=== PATIENT | female | born 1980 | race Caucasian/White ===

== ENCOUNTER 2024-12-30 07:55 | Observation (INO) | payer BC, SELFPAY ==
[2024-12-30] VITALS (28 sets, daily range): BP systolic 108–128; BP diastolic 66–89; PULSE 54–88; TEMP 36.6–36.8; O2SAT 95–99; BMI 27.0; BMI 26.9
[2024-12-30 08:07] LABS: Glucometer 98 mg/dL (74-106)
--- NOTE | 2024-12-30 08:16 | ECG_ITS ---
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 Measurements Intervals [place] Rate: 66 P: 71 [place]: 170 QRS: -75 QRSD: 92 T: 54 QT: 374 QTc: 387 Interpretive Statements 1100 Sinus rhythm 2440 Incomplete right bundle branch block 2630 Left anterior fascicular block 3114 Cannot rule out anterior myocardial infarction, age undetermined 9150 abnormal ECG No previous ECG available for comparison Electronically Signed On 12-30-2024 17:27:35 EDT by LANNY PLAZA M.D.
--- NOTE | 2024-12-30 08:30 | ED_ITS ---
HPI HPI - General Adult General Chief complaint: Psychiatric Symptoms Stated complaint: CONFUSION, FACIAL NUMBNESS Time Seen by Provider: 12/30/24 08:05 Source: patient Mode of arrival: walk-in Limitations: no limitations History of Present Illness HPI narrative: 44-year-old female to the emergency department chief complaint of neurologic symptoms. Patient reports that since August she has noticed some increased left-sided headaches, mostly pressure behind her left eye. She reports that the headaches have increased in both frequency and severity. No aggravating or alleviating factors. She then began to develop some left-sided facial numbness mostly in her lower face/jaw. Over the last few weeks she has noticed some personality changes, reports she is more depressed and withdrawn. She reports the headaches worsened and localized behind the left eye. She saw her eye doctor on Monday and was told that everything looked normal with her eye after complete eye exam. Her primary care doctor did order an MRI for her however this has not yet been scheduled. She denies any motor weakness but reports it feels as though her hands are clumsy. She reports she has been having some intermittent confusion and difficulty completing tasks. She reports she has trouble finding words. Related Data Allergies Allergy/AdvReac Type Severity Reaction Status Date / Time bacitracin (From Neosporin AdvReac Severe Unknown Verified 12/30/24 08:01 ([id number])) neomycin (From Neosporin AdvReac Severe Unknown Verified 12/30/24 08:01 ([id number])) polymyxin B (From Neosporin AdvReac Severe Unknown Verified 12/30/24 08:01 ([id number])) Opioid HPI Opioid Management Most Recent Opioid Data: Last Pain Scale 5 12/30/24 08:41 12/30/24 Review of Systems ROS Status of ROS 10 or more systems reviewed and unremark able except as noted in history and below PFSH PFSH Social History Little interest or pleasure in doing things: nearly every day Feeling down, depressed, or hopeless: not at all Exam Narrative Exam Narrative: VITALS: I have reviewed the triage vital signs. GENERAL: Well developed, well appearing adult in no acute distress. NEURO: Alert and oriented. Moves all extremities. Face is symmetric and expressive. Motor strength is grossly intact in the upper and lower extremities bilaterally. No dysarthria, aphasia. No ataxia. No Rajan inattention or neglect. She has subjective sensation changes on the left side of the face and left hand. NIHSS 1. EYES: PERRL. No scleral icterus or conjunctival injection. No discharge. HENT: Normocephalic, atraumatic. Hearing is grossly intact. Nares grossly patent and without discharge. Mucous membranes moist. NECK: No JVD. Patient moves neck without restriction. CARDIO: Rhythm regular. Normal rate. No murmur, rub, or gallop. Pulses equal bilaterally in the upper and lower extremity. No lower extremity edema. PULM: Lungs clear to auscultation in all phillips. No wheezes, rales, or rhonchi. No conversational dyspnea. No splinting, stridor, or accessory muscle use. GI/: Abdomen is soft and non-tender. Normoactive bowel sounds. EXTREMITIES: Symmetric muscle bulk. No joint swelling. No clubbing, cyanosis, or deformity. SKIN: Warm and dry. Normal turgor. No rash or lesions appreciated. PSYCH: Tearful, anxious Constitutional Vital Signs, click to edit/add: Last Vital Signs Temp 98.2 F 12/30/24 08:01 Pulse 76 12/30/24 11:40 Resp 19 12/30/24 11:40 BP 110/74 12/30/24 11:30 Pulse Ox 97 12/30/24 11:40 O2 Del Method Room Air 12/30/24 08:40 Course Vital Signs Vital signs: Vital Signs Temperature 98.2 F 12/30/24 08:01 Pulse Rate 88 12/30/24 08:01 Respiratory Rate 18 12/30/24 08:01 Blood Pressure 128/89 12/30/24 08:01 Pulse Oximetry 97 12/30/24 08:01 Oxygen Delivery Method Room Air 12/30/24 08:01 Temperature 98.2 F 12/30/24 08:01 Pulse Rate 76 12/30/24 11:40 Respiratory Rate 19 12/30/24 11:40 Blood Pressure 110/74 12/30/24 11:30 Pulse Oximetry 97 12/30/24 11:40 Oxygen Delivery Method Room Air 12/30/24 08:40 Medical Decision Making MDM Narrative Medical decision making narrative: 44-year-old female to the emergency department with chief complaint of left- sided headache, left-sided facial numbness, speech issues that have been ongoing since August. Vital stable, the patient is afebrile. Her exam is unremarkable except for some subjective sensation change on the left side. She has had no neuroimaging to date. Will order CT scan of the head without contrast. Basic labs. Patient agrees with this plan. Lab work reviewed and noted. No significant abnormality. Contaminated urine, sent for culture. I do not believe she has a UTI based on this result. CT scan of the head is without acute findings. Given her progressive ongoing symptoms we will admit to the hospital for an MRI. Case discussed with Dr. Geller. She agrees with this plan. Medical Records Medical records reviewed: Yes I reviewed the patient's medical records Lab Data Lab results reviewed: Yes I reviewed the patient's lab results Labs: Lab Results 12/30/24 12/30/24 12/30/24 Range/Units 08:05 08:11 08:13 WBC 7.5 (4.0-11.0) 10^3/uL RBC 4.47 (4.20-5.40) 10^6/uL Hgb 14.0 (12.0-16.0) g/dL Hct 41.7 (36.0-48.0) % MCV 93.3 (81.0-99.0) fL MCH 31.3 (26.7-34.0) pg MCHC 33.6 (29.9-35.2) g/dL RDW 12.2 (11.0-15.0) % Plt Count 208 (150-450) 10^3/uL MPV 10.7 (9.5-13.5) fL Neut % (Auto) 53.5 (43.0-75.0) % Lymph % (Auto) 38.5 (20.5-60.0) % Gila % (Auto) 5.6 (1.7-12.0) % Eos % (Auto) 1.2 (0.9-7.0) % Baso % (Auto) 0.7 (0.2-2.0) % Neut # (Auto) 4.0 (1.4-6.5) 10^3/uL Lymph # (Auto) 2.9 (1.2-3.8) 10^3/uL Gila # (Auto) 0.4 (0.3-0.8) 10^3/uL Eos # (Auto) 0.1 (0.0-0.7) 10^3/uL Baso # (Auto) 0.1 (0.0-0.1) 10^3/uL Abs Immat Gran (auto) 0.04 H (0.00-0.03) 10^3/uL Imm/Tot Granulo (auto) 0.5 (0.0-0.5) % PT 10.6 (9.0-11.6) sec INR 1.00 Sodium 141 (136-145) mmol/L Potassium 4.5 (3.5-5.1) mmol/L Chloride 106 (98-107) mmol/L Carbon Dioxide 26.4 (21.0-32.0) mmol/L Anion Gap 13.1 BUN 21.0 H (7.0-18.0) mg/dL Creatinine 1.09 H (0.55-1.02) mg/dL Est GFR ( Amer) >60 (>=60 mL/min/1.73m^2) Est GFR (Non-Af Amer) 55 L (>=60 mL/min/1.73m^2) BUN/Creatinine Ratio 19.3 Glucose 98 (74-106) mg/dL Calcium 9.2 (8.5-10.1) mg/dL Troponin I High Sens 4.6 (4.0-51.3) pg/mL Urine Color Yellow (YELLOW) Urine Clarity Clear (CLEAR) Urine pH 5.5 (5.0-9.0) Ur Specific Stuart >=1.030 A (1.005-1.025) Urine Protein Negative (NEG/TRACE) mg/dL Urine Glucose (UA) Negative (NEGATIVE) mg/dL Urine Ketones Negative (NEGATIVE) mg/dL Urine Occult Blood Negative (NEGATIVE) Urine Nitrite Negative (NEGATIVE) Urine Bilirubin Negative (NEGATIVE) Urine Urobilinogen 0.2 (0.2-1.0) EU/dL Ur Leukocyte Esterase Negative (NEGATIVE) Urine RBC 0-2 (0-2) #/HPF Urine WBC None seen (NONE SEEN) #/HPF Ur Squamous Epith Cells Moderate A (NONE/RARE) #/LPF Urine Crystals None seen (None Seen) #/HPF Urine Bacteria Moderate A (NONE SEEN) #/HPF Urine Casts None seen (NONE SEEN) #/LPF Urine Mucus Large A (NONE SEEN) Ur Culture Indicated? Yes-[facility] [place] Urine HCG, Qual Negative (NEGATIVE) POC Glucose 98 (74-106) mg/dL Imaging Data CT scan - head: Attestation: I have reviewed the pertinent imaging results. Radiologist's impression: See PACS document ECG Data Attestation: ?I have reviewed the pertinent ECG results. (Normal sinus rhythm at a rate of 66. Normal QTc at 387. ) Discharge Plan Discharge Chief Complaint: Psychiatric Symptoms Clinical Impression: Paresthesia, Headache, Confusion Patient Disposition: Admitted as Observation Time of Disposition Decision: 12:05 Condition: Good Mode of Transportation: Private Vehicle Print Language: [place] Referrals: Darryl Campos NP [Primary Care Provider] - 1 week
[2024-12-30 08:45] LABS: Anion Gap 13.1; BUN Creatinine Ratio 19.3; Calcium 9.2 mg/dL (8.5-10.1); Carbon Dioxide 26.4 mmol/L (21.0-32.0); Chloride 106 mmol/L (98-107); Estimated GFR (African America >60 (>=60 mL/min/1.73m^2); Estimated GFR (Non-African Ame 55 (>=60 mL/min/1.73m^2); Glucose 98 mg/dL (74-106); Potassium 4.5 mmol/L (3.5-5.1); Sodium 141 mmol/L (136-145); Troponin I High Sensitivity 4.6 pg/mL (4.0-51.3)
[2024-12-30 08:48] LABS: Basophils Absolute Auto 0.1 10^3/uL (0.0-0.1); Basophils Percent Auto 0.7 % (0.2-2.0); Eosinophils Absolute Auto 0.1 10^3/uL (0.0-0.7); Eosinophils Percent Auto 1.2 % (0.9-7.0); Hematocrit 41.7 % (36.0-48.0); Immature Granulocytes Abs Auto 0.04 10^3/uL (0.00-0.03); Immature Granulocytes Pct Auto 0.5 % (0.0-0.5); Lymphocytes Absolute Auto 2.9 10^3/uL (1.2-3.8); Lymphocytes Percent Auto 38.5 % (20.5-60.0); Mean Corpuscular HGB Conc 33.6 g/dL (29.9-35.2); Mean Corpuscular Hemoglobin 31.3 pg (26.7-34.0); Mean Corpuscular Volume 93.3 fL (81.0-99.0); Mean Platelet Volume 10.7 fL (9.5-13.5); Monocytes Absolute Auto 0.4 10^3/uL (0.3-0.8); Monocytes Percent Auto 5.6 % (1.7-12.0); Neutrophils Percent Auto 53.5 % (43.0-75.0); Platelet Count 208 10^3/uL (150-450); Red Blood Count 4.47 10^6/uL (4.20-5.40); Red Cell Distribution Width 12.2 % (11.0-15.0); White Blood Count 7.5 10^3/uL (4.0-11.0)
[2024-12-30 08:51] LABS: Bilirubin Urine NEGATIVE (NEGATIVE); Blood Urine NEGATIVE (NEGATIVE); Clarity Urine CLEAR (CLEAR); Color Urine YELLOW (YELLOW); Glucose Urine UA NEGATIVE (NEGATIVE); Ketones Urine NEGATIVE (NEGATIVE); Leukocyte Esterase Urine NEGATIVE (NEGATIVE); Nitrite Urine NEGATIVE (NEGATIVE); Protein Urine NEGATIVE (NEG/TRACE); Specific Gravity Urine >=1.030 (1.005-1.025); Urobilinogen Urine 0.2 EU/dL (0.2-1.0); pH Urine 5.5 (5.0-9.0)
[2024-12-30 08:52] LABS: Prothrombin Time 10.6 sec (9.0-11.6)
[2024-12-30 08:58] LABS: Bacteria Urine MODERATE #/HPF (NONE SEEN); WBC Urine NONE SEEN #/HPF (NONE SEEN)
[2024-12-30 08:59] LABS: Cast Seen? NONE SEEN #/LPF (NONE SEEN); Crystals Seen? None Seen #/HPF (None Seen); Mucus Urine LARGE (NONE SEEN); Squamous Epithelial Cell Urine MODERATE #/LPF (NONE/RARE); Urine Culture Indicated YES-FRMC
[2024-12-30 09:00] LABS: RBC Urine 0-2 #/HPF (0-2)
[2024-12-30 09:01] LABS: HCG Qualitative Urine* NEGATIVE (NEGATIVE); Internal Control Within Normal Limits
--- OUTSIDE RECORDS SUMMARY | 2024-12-30 12:28 | XMS_ITS | CCD ---
Author Organization [facility] Inform ion Partnership [facility] Care Team Providers Care Service Liaison Representative Name Role Phone PRANAY SIMPSON Referring Unavailable SEJAL NAVARRO Primary Care Unavailable PRANAY SIMPSON Referring Unavailable SEJAL NAVARRO Primary Care Unavailable MAYRA GUTIERREZ Referring Unavailable SEJAL NAVARRO Primary Care Unavailable PRANAY SIMPSON Consulting Unavailable MAKAYLA BECERRA Admitting Unavailable MAGI WOOD Attending Unavailable MARI RAMIREZ Consulting Unavailable ROMAN PALOMINO Consulting Unavailable Sejal Navarro Primary Care Provider [phone] [place] [employer] DEANSejal Primary Care Provider [place] [employer] DEAN, Ryley [place]isle Primary Care Prov ider TAHIR VALDEZ Referring Unavailable CLINRYLEY URIARTE Primary Care Unavailable TAHIR VALDEZ Referring Unavailable CLINRYLEY URIARTE Primary Care Unavailable ARACELI HODGE Attending Unavailable SELF, SELF Referring Unavailable RYLEY CAMPOS Primary Care Unavailable RYLEY CAMPOS Primary Care Unavailable ARACELI HODGE Referring Unavailable ARACELI HODGE Attending Unavailable Allergies Allergy Classification Reported Allergen(s) Allergy Type Date of Onset Reaction(s) Facility (9 sources) Neomycin-Polymyx in-Gramicidin Propensity to adverse reactions to drug 04-16-2019 [facility] [place] Medications Current Medications Medication Drug Class(es) Dates Sig (Normalized) Sig (Original) acetaminophen 325 mg oral tablet (9 sources) take 2 tablets by mouth every six hours as needed for pain acetaminophen (TYLENOL) 325 MG tablet Take 2 tablets by mouth every 6 hours as needed for Pain 0 Active Ascorbic Acid (4 sources) Vitamin C Ascorbic Acid (ADRIAN-C PO) Take by mouth 0 Active ascorbic acid 60 mg / beta carotene 5000 unt / copper sulfate 40 mg / dl-alpha tocopheryl acetate 30 unt / sodium selenite 0.04 mg / zinc oxide 40 mg oral tablet (2 sources) Vitamin C take 1 tablet by mouth once daily Multiple Vitamins-Minerals (THERAPEUTIC MULTIVITAMIN-MINERA LS) tablet Take 1 tablet by mouth daily 0 Active dicyclomine hydrochloride 10 mg oral capsule (2 sources) Anticholinergic Start: 09-03-2021 End: 09-13-2021 take 1 capsule by mouth three times daily dicyclomine (BENTYL) 10 MG capsule Take 1 capsule by mouth 3 times daily for 10 days 30 capsule 0 09/03/2021 09/13/2021 Active ferrous sulfate 325 mg oral tablet (3 sources) Start: 04-18-2019 take 1 tablet by mouth once daily at breakfast ferrous sulfate 325 (65 Fe) MG tablet Take 1 tablet by mouth daily (with breakfast) 90 tablet 1 04/18/2019 Active ibuprofen 800 mg oral tablet (1 source) Nonsteroidal Anti-inflammatory Drug take 1 tablet by mouth every six hours as needed for pain ibuprofen (ADVIL;MOTRIN) 800 MG tablet Take 800 mg by mouth every 6 hours as needed for Pain 0 Active magnesium oxide 400 mg oral tablet (9 sources) take 1 tablet by mouth once daily magnesium oxide (MAG-OX) 400 MG tablet Take 1 tablet by mouth nightly 0 Active Multiple Vitamins-Minerals (THERAPEUTIC MULTIVITAMIN-MINERA LS) tablet (7 sources) take 1 tablet by mouth once daily Multiple Vitamins-Minerals (THERAPEUTIC MULTIVITAMIN-MINERA LS) tablet Take 1 tablet by mouth daily 0 Active ondansetron 4 mg disintegrating oral tablet (5 sources) Serotonin-3 Receptor Antagonist Start: 06-17-2022 take 1 tablet by mouth every eight hours as needed for nausea ondansetron (ZOFRAN ODT) 4 MG disintegrating tablet Take 1 tablet by mouth every 8 hours as needed for Nausea or Vomiting 30 tablet 0 06/17/2022 Active Start: 09-03-2021 take 1 tablet by haris th every twelve hours as needed for nausea ondansetron (ZOFRAN-ODT) 4 MG disintegrating tablet Indications: Bloated abdomen , Nausea Take 1 tablet by mouth every 12 hours as needed for Nausea or Vomiting 8 tablet 0 09/03/2021 Active Start: 04-23-2019 take 1 tablet by haris th every eight hours as needed for nausea ondansetron (ZOFRAN) 4 MG tablet Indications: Nausea and vomiting, intractability of vomiting not specified, unspecified vomiting type Take 1 tablet by mouth every 8 hours as needed for Nausea or Vomiting 12 tablet 0 04/23/2019 Active pantoprazole 40 mg delayed release oral tablet (1 source) Proton Pump Inhibitor Start: 04-23-2019 take 1 tablet by mouth once daily pantoprazole (PROTONIX) 40 MG tablet Indications: Nausea and vomiting, intractability of vomiting not specified, unspecified vomiting type Take 1 tablet by mouth daily 30 tablet 2 04/23/2019 Active 24 hr divalproex sodium 500 mg extended release oral tablet (4 sources) Mood Stabilizer, Anti-epileptic Agent Start: 02-21-2023 take 1 tablet by mouth once daily divalproex (DEPAKOTE ER) 500 MG extended release tablet Take 1 tablet by mouth daily 90 tablet 1 02/21/2023 Active Start: 08-24-2022 take 1 tablet by haris th once daily divalproex (DEPAKOTE ER) 250 MG extended release tablet Take 1 tablet by mouth daily 90 tablet 1 08/24/2022 Active vitamin b12 0.1 mg oral tablet (9 sources) Vitamin B12 take 1 tablet by mouth once daily vitamin B-12 (CYANOCOBALAMIN) 100 MCG tablet Take 1 tablet by mouth nightly 0 Active Completed/Discontinued Medications Medication Drug Class(es) Dates Sig (Normalized) Sig (Original) ciprofloxacin 500 mg oral tablet (2 sources) Quinolone Antimicrobial Start: 03-17-2020 End: 03-27-2020 take 1 tablet by mouth twice daily ciprofloxacin (CIPRO) 500 MG tablet Take 1 tablet by mouth 2 times daily for 10 days Diverticulitis 20 tablet 0 03/17/2020 03/18/2020 Discontinued iohexol (OMNIPAQUE 240) injection 20 mL (1 source) Start: 03-17-2020 End: 03-17-2020 iohexol (OMNIPAQUE 240) injection 20 mL iopamidol (ISOVUE-370) 76 % injection 75 mL (1 source) Start: 03-17-2020 End: 03-17-2020 iopamidol (ISOVUE-370) 76 % injection 75 mL metroNIDAZOLE 500 mg oral tablet (2 sources) Nitroimidazole Antimicrobial Start: 03-17-2020 End: 03-27-2020 take 1 tablet by mouth three times daily metroNIDAZOLE (FLAGYL) 500 MG tablet Take 1 tablet by mouth 3 times daily for 10 days Diverticulitis 30 tablet 0 03/17/2020 03/18/2020 Discontinued Problems Active Problems Problem Classification Problem Date Documented Da te Episodic/Chronic Abdominal pain (3 sources) Abdominal tenderness of left lower quadrant; Translations: [Upper abdominal pain] Episodic Anxiety disorders (18 sources) Mixed anxiety and depressive disorder; Translations: [Posttraumatic stress disorder] Onset: 10-19-2017 10-19-2017 Chronic Cardiac dysrhythmias (2 sources) Palpitations; Translations: [Palpitations] Episodic Gastrointestinal hemorrhage (2 sources) Rectal hemorrhage; Translations: [Rectal bleeding] Episodic Mood disorders (2 sources) Bipolar I disorder; Translations: [Bipolar disorder, unspecified] Onset: 06-24-2022 06-24-2022 Chronic Nausea and vomiting (3 sources) Nausea; Translations: [Nausea] Episodic Other gastrointestinal disorders (1 source) Irritable bowel syndrome characterized by constipation; Translations: [Irritable bowel syndrome with constipation] Chronic Other gastrointestinal disorders (1 source) Abdominal bloating; Translations: [Abdominal distension (gaseous)] Episodic Other non-traumatic joint disorders (1 source) Acute ankle pain; Translations: [Pain in left ankle and joints of left foot] Episodic Other non-traumatic joint disorders (3 sources) Pain in left ankle and joints of left foot; Translations: [Pain in left ankle and joints of left foot] Onset: 02-24-2023 Episodic Residual codes; unclassified (2 sources) Pain; Translations: [Pain] Onset: 02-28-2023 Episodic Unclassified (2 sources) Injury; Translations: [Injury] Onset: 02-28-2023 Past or Other Problems Problem Classification Problem Date Documented Da te Episodic/Chronic Coagulation and hemorrhagic disorders (4 sources) Platelet count below reference range; Translations: [Thrombocytopenia, unspecified] Resolved: 08-11-2020 08-11-2020 Chronic Diseases of white blood cells (10 sources) Leukopenia; Translations: [Decreased white blood cell count, unspecified] Onset: 04-15-2019 Resolved: 08-11-2020 04-18-2019 Chronic Other screening for suspected conditions (not mental disorders or infectious disease) (9 sources) Platelet count below reference range; Translations: [Cancer cervix screening status] Onset: 07-16-2012 Resolved: 08-11-2020 04-18-2019 Episodic Residual codes; unclassified (9 sources) Generalized aches and pains; Translations: [Pain, unspecified] Resolved: 04-18-2019 04-18-2019 Episodic Residual codes; unclassified (9 sources) Influenza-like symptoms; Translations: [Other general symptoms and signs] Resolved: 04-18-2019 04-18-2019 Episodic Unclassified (5 sources) Cancer cervix screening status; Translations: [Screening for cervical cancer] Onset: 07-16-2012 Resolved: 08-13-2018 08-13-2018 Viral infection (9 sources) Viremia; Translations: [Viral infection, unspecified] Resolved: 08-11-2020 04-18-2019 Episodic Results Test Name Value Interpretation Reference Range Facility XR ANKLE LEFT (MIN 3 VIEWS)o n 02-24-2023 XR ANKLE LEFT (MIN 3 VIEWS) EXAM: XR ANKLE LEFT (MIN 3 VIEWS) HISTORY: Reason for exam:->trauma to the ankle, concern for Fx COMPARISON: None. IMPRESSION: FINDINGS/IMPRESSION: 1. Soft tissue swelling over lateral malleolus. 2. No fracture or dislocation. Interpreted by: Mitch Hutchinson Jr., MD Signed by: Mitch Hutchinson Jr., MD 02/24/23 Final result Normal [facility] FINDINGS/IMPRESSION: 1. Soft tissue swelling over lateral malleolus. 2. No fracture or dislocation. [facility] EXAM: XR ANKLE LEFT (MIN 3 VIEWS) HISTORY: Reason for exam:->trauma to the ankle, concern for Fx COMPARISON: None. [facility] Mitch Hutchinson Jr., MD - 02/24/2023 EXAM: XR ANKLE LEFT (MIN 3 VIEWS) HISTORY: Reason for exam:->trauma to the ankle, concern for Fx COMPARISON: None. IMPRESSION: FINDINGS/IMPRESSION: 1. Soft tissue swelling over lateral malleolus. 2. No fracture or dislocation. [employer] Phone: Radiology Study observation (narrative) [facility] Phone: XR ANKLE LEFT (MIN 3 VIEWS)O rdered By: Mitch Hutchinson on 02-24-2023 [email or web address] Phone: Basic Metabolic Panelon 11-1 9-2021 Anion gap [Moles/Vol] 10 mmol/L 9 - 17 mmol/L [facility] Calcium [Mass/Vol] 10.1 mg/dL 8.6 - 10. 4 mg/dL [facility] Chloride [Moles/Vol] 99 mmol/L 98 - 10 7 mmol/L [facility] CO2 [Moles/Vol] 29 mmol/L 20 - 31 mmol/L [facility] Creatinine [Mass/Vol] 0.9 mg/dL 0.50 - 0.90 mg/dL [facility] GFR >60 >60 mL/min [facility] GFR Non- >60 >60 mL/min [facility] GFR/1.73 sq M.predicted MDRD (S/P/Bld) [Vol rate/Area] [facility] Comment on above: Average GFR for 40-4 9 years old: 99 mL/min/1.73sq m Chronic Kidney Disease: <60 mL/min/1.73sq m Kidney failure: <15 mL/min/1.73sq m eGFR calculated using average adult body mass. Additional eGFR calculator available at: http://www.Freepath/multiple_crcl_2012.htm GFR/1.73 sq M.predicted MDRD (S/P/Bld) [Vol rate/Area] NOT REPORTED [facility] Glucose [Mass/Vol] 89 mg/dL 70 - 99 mg/dL [facility] Potassium [Moles/Vol] 4.0 mmol/L 3.7 - 5.3 mmol/L [facility] Sodium [Moles/Vol] 138 mmol/L 135 - 144 mmol/L [facility] Urea nitrogen (BldV) [Mass/Vol] 12 mg/dL 6 - 20 mg/dL [facility] Urea nitrogen/Creatinine (Bld) [Mass ratio] 13 [facility] CBC Auto Differentialon 08-16 Absolute Eos # 0.10 [facility] Immature Granulocyte NOT REPORTED [facility] Absolute Lymph # 2.70 [facility] Absolute [place] [facility] Basophils (Bld) [#/Vol] 0.00 10*3/uL [facility] Basophils/100 WBC (Bld) 0 % 0 - 2 % [facility] Differential Type YES [facility] Eosinophils/100 WBC (Bld) 1 % 0 - 5 % [facility] Hematocrit (Bld) [Volume fraction] 40.8 % 36 - 46 % [facility] Hemoglobin.gastrointes tinal spec 1 Ql (Stl) 13.6 g/dL 12.0 - 16.0 g/dL [facility] Immature Granulocytes NOT REPORTED 0 % [facility] Lymphocytes/100 WBC (Bld) 37 % 15 - 40 % [facility] MCH (RBC) [Entitic mass] 30.7 pg 26 - 34 pg [facility] MCHC (RBC) [Mass/Vol] 33.3 g/dL 31 - 37 g/dL [facility] MCV (RBC) [Entitic vol] 92.2 fL 80 - 100 fL [facility] Monocytes/100 WBC (Bld) 6 % 4 - 8 % [facility] NRBC Automated NOT REPORTED per 100 WBC [facility] Platelet distribution width (Bld) [Ratio] 13.7 % 12.1 - 15.2 % [facility] Platelet Estimate NOT REPORTED [facility] Platelet mean volume (Bld) [Entitic vol] NOT REPORTED 6.0 - 12.0 fL [facility] Platelets (Bld) [#/Vol] 208 10*3/uL [facility] RBC (Bld) [#/Vol] 4.42 10*6/uL 4.0 - 5.2 m/uL [facility] RBC (Bld) [#/Vol] NOT REPORTED [facility] Segmented neutrophils/100 WBC (Bld) 56 % 47 - 75 % [facility] Segs Absolute 4.10 [facility] W[facility] ([facility]ld[facility] [#/Vol] 7.4 10*3/uL [facility] WBC (Bld) [#/Vol] NOT REPORTED [facility] [place] [facility] [place] Hepatic Function Panelon Albumin [Mass/Vol] 4.7 g/dL 3.5 - 5.2 g/dL [facility] Albumin/Globulin Ratio NOT REPORTED [facility] ALP (Bld) [Catalytic activity/Vol] 65 U/L 35 - 104 U/L [facility] ALT [Catalytic activity/Vol] 22 U/L 5 - 33 U/L [facility] AST [Catalytic activity/Vol] 22 U/L <32 [facility] Bilirubin [Mass/Vol] 0.49 mg/dL 0.30 - 1.20 mg/dL [facility] Bilirubin, Indirect Can not be calculated 0.00 - 1.00 mg/dL [facility] Bilirubin.indirect [Mass/Vol] mg/dL <0.31 mg/dL [facility] Free PSA/Total PSA [Mass fraction] 7.0 g/dL 6.4 - 8.3 g/dL [facility] Globulin NOT REPORTED 1.5 - 3.8 g/dL [facility] Lipaseon 09-03-2021 Lipase [Catalytic activity/Vol] 21 U/L 13 - 60 U/L [facility] Microscopic Urinalysison - [facility] Amorphous, UA NOT REPORTED [facility] Bacteria, UA 1+ Abnormal None [facility] Casts UA NOT REPORTED /LPF [facility] Crystals, UA NOT REPORTED None /HPF [facility] th Epithelial Cells UA 2 TO 5 /HPF [facility] Interpretation and review of laboratory results Abnormal [facility] Mucus, UA NOT REPORTED None [facility] Other Observations UA NOT REPORTED NOT REQ. [facility] RBC, UA 0 TO 2 [facility] Renal Epithelial, UA NOT REPORTED 0 /HPF [facility] Trichomonas, UA NOT REPORTED None [facility] WBC, UA 0 TO 2 0 /HPF [facility] Yeast, UA NOT REPORTED None [facility] [place] [facility] [place] No Panel Informationon 09-03 Normal KUB. [facility] EXAM: XR ABDOMEN (2 VIEWS) HISTORY: Reason for exam:->epigastric pain, bloating, uncomfortable to sit down, rule out free air. IBS-c COMPARISON: CT abdomen pelvis 03/17/2020. TECHNIQUE: KUB, 2 images. FINDINGS: Lung bases clear. Gas pattern normal. No excess stool. No abnormal soft tissue mass or calcification. [facility] Mitch Hutchinson Jr., MD - 09/03/2021 EXAM: XR ABDOMEN (2 VIEWS) HISTORY: Reason for exam:->epigastric pain, bloating, uncomfortable to sit down, rule out free air. IBS-c COMPARISON: CT abdomen pelvis 03/17/2020. TECHNIQUE: KUB, 2 images. FINDINGS: Lung bases clear. Gas pattern normal. No excess stool. No abnormal soft tissue mass or calcification. IMPRESSION: Normal KUB. [facility] Work Phone: [facility] Radiology Study observation (narrative) [facility] Work Phone: No Panel InformationOrdered By: Mitch Hutchinson on 09-03-2021 [facility] Work Phone: Urinalysis Reflex to Culture on 09-03-2021 Bilirubin Urine Negative NEGATIVE [facility] Color, UA Yellow Yellow [facility] Glucose, Ur Negative NEGATIVE [facility] Interpretation and review of laboratory results Abnormal [facility] Ketones Ql (U) Negative NEGATIVE [facility] Leukocyte esterase Test strip Ql (U) Negative NEGATIVE [facility] Nitrite, Urine Negative NEGATIVE [facility] pH, UA 6.5 [facility] Protein, UA Negative NEGATIVE [facility] Specific [place], UA 1.015 [facility] Turbidity UA Clear Clear [facility] Urinalysis Comments [facility] Urine Hgb TRACE Abnormal NEGATIVE [facility] Urobilinogen, Urine Normal Normal [facility] [place] [facility] [place] CBC Auto Differentialon 10-2 Basophils (Bld) [#/Vol] 0.10 10*3/uL [place] Basophils/100 WBC (Bld) 1 % 0 - 2 % [place] Differential Type YES [place] Eosinophils (Bld) [#/Vol] 0.00 10*3/uL [place] Eosinophils/100 WBC (Bld) 1 % 0 - 5 % [place] Erythrocyte distribution width (RBC) [Ratio] 14.8 % 12.1 - 15.2 % [place] Hematocrit (Bld) [Volume fraction] 38.9 % 36 - 46 % [place] Hemoglobin (Bld) [Mass/Vol] 12.9 g/dL 12 - 16 g/dL [place] Lymphocytes (Bld) [#/Vol] 3.10 10*3/uL [place] Lymphocytes/100 WBC (Bld) 34 % 15 - 40 % [place] MCH (RBC) [Entitic mass] 29.5 pg 26 - 34 pg [place] MCHC (RBC) [Mass/Vol] 33.2 g/dL 31 - 37 g/dL [place] MCV (RBC) [Entitic vol] 88.9 fL 80 - 100 fL [place] Monocytes (Bld) [#/Vol] 0.50 10*3/uL [place] Monocytes/100 WBC (Bld) 6 % 4 - 8 % [place] Platelet mean volume (Bld) [Entitic vol] NOT REPORTED 6 - 12 fL [place] Platelets (Bld) [#/Vol] NOT REPORTED [place] Platelets (Bld) [#/Vol] 205 10*3/uL [place] RBC (Bld) [#/Vol] 4.38 10*6/uL 4 - 5.2 m/uL [place] RBC morphology finding Nom (Bld) NOT REPORTED [place] Segmented neutrophils/100 WBC (Bld) 58 % 47 - 75 % [place] Segs Absolute 5.20 [place] WBC (Bld) [#/Vol] 8.9 10*3/uL [place] WBC (Bld) [#/Vol] NOT REPORTED per 100 WBC [place] WBC Morphology NOT REPORTED [place] Comprehensive Metabolic Pane ceferino 08-11-2020 Albumin [Mass/Vol] 4.5 g/dL 3.5 - 5.2 g/dL [place] Albumin/Globulin [Mass ratio] NOT REPORTED [place] ALP [Catalytic activity/Vol] 63 U/L 35 - 104 U/L [place] ALT [Catalytic activity/Vol] 15 U/L 5 - 33 U/L [place] Anion gap [Moles/Vol] 10 mmol/L 9 - 17 mmol/L [place] AST [Catalytic activity/Vol] 20 U/L <32 [place] Bilirubin Ql (U) 0.38 mg/dL 0.3 - 1.2 mg/dL [place] Bun/Cre Ratio 18 [place] Calcium [Mass/Vol] 9.5 mg/dL 8.6 - 10. 4 mg/dL [place] Chloride [Moles/Vol] 103 mmol/L 98 - 10 7 mmol/L [place] CO2 [Moles/Vol] 26 mmol/L 20 - 31 mmol/L [place] Creatinine [Mass/Vol] 1.05 mg/dL High 0.5 - 0.9 mg/dL [place] GFR >60 >60 mL/min [place] GFR Non- 58 mL/min Low >60 [place] GFR/1.73 sq M predicted among non-blacks MDRD (S/P/Bld) [Vol rate/Area] NOT REPORTED [place] GFR/1.73 sq M predicted among non-blacks MDRD (S/P/Bld) [Vol rate/Area] [place] Comment on above: Average GFR for 40-4 9 years old: 99 mL/min/1.73sq m Chronic Kidney Disease: <60 mL/min/1.73sq m Kidney failure: <15 mL/min/1.73sq m eGFR calculated using average adult body mass. Additional eGFR calculator available at: http://www.Freepath/multiple_crcl_2011.htm Glucose [Mass/Vol] 105 mg/dL High 70 - 99 mg/dL [place] Interpretation and review of laboratory results Abnormal [place] Potassium [Moles/Vol] 4.1 mmol/L 3.7 - 5.3 mmol/L [place] Protein [Mass/Vol] 6.9 g/dL 6.4 - 8.3 g/dL [place] Sodium [Moles/Vol] 139 mmol/L 135 - 144 mmol/L [place] Urea nitrogen [Mass/Vol] 19 mg/dL 6 - 20 mg/dL [place] Magnesiumon 08-11-2020 Magnesium [Mass/Vol] 2.5 mg/dL 1.6 - 2 .6 mg/dL [place] Otheron 08-11-2020 Immature granulocytes (Bld) [#/Vol] NOT REPORTED [place] TSH with Reflexon 08-11-2020 TSH Qn 0.98 m[IU]/L [place] CBC Auto Differentialon Basophils (Bld) [#/Vol] 0.00 10*3/uL [place] Basophils/100 WBC (Bld) 1 % 0 - 2 % [place] Differential Type YES [facility] [place] Eosinophils (Bld) [#/Vol] 0.10 10*3/uL [place] Eosinophils/100 WBC (Bld) 1 % 0 - 5 % [place] Erythrocyte distribution width (RBC) [Ratio] 13.8 % 12.1 - 15.2 % [place] Hematocrit (Bld) [Volume fraction] 42.0 % 36 - 46 % [place] Hemoglobin (Bld) [Mass/Vol] 13.9 g/dL 12 - 16 g/dL [place] Interpretation and review of laboratory results Abnormal [place] Lymphocytes (Bld) [#/Vol] 2.90 10*3/uL [place] Lymphocytes/100 WBC (Bld) 41 % High 15 - 40 % [place] MCH (RBC) [Entitic mass] 30.5 pg 26 - 34 pg [place] MCHC (RBC) [Mass/Vol] 33.0 g/dL 31 - 37 g/dL [place] MCV (RBC) [Entitic vol] 92.2 fL 80 - 100 fL [place] Monocytes (Bld) [#/Vol] 0.70 10*3/uL [place] Monocytes/100 WBC (Bld) 10 % High 4 - 8 % [place] Platelet mean volume (Bld) [Entitic vol] NOT REPORTED 6 - 12 fL [place] Platelets (Bld) [#/Vol] NOT REPORTED [place] Platelets (Bld) [#/Vol] 203 10*3/uL [place] RBC (Bld) [#/Vol] 4.56 10*6/uL 4 - 5.2 m/uL [place] RBC morphology finding Nom (Bld) NOT REPORTED [place] Segmented neutrophils/100 WBC (Bld) 47 % 47 - 75 % [place] Segs Absolute 3.30 [facility] [place] WBC (Bld) [#/Vol] NOT REPORTED per 100 WBC [place] WBC (Bld) [#/Vol] 6.9 10*3/uL [place] WBC Morphology NOT REPORTED [facility] [place] CT ABDOMEN PELVIS W IV CONTR AST Additional Contrast? Oralon 03-17-2020 1. No obvious explanation for patient's symptoms. 2. No obvious inflammatory process involving the small or large bowel loops. 3. Normal appendix. 4. Simple cyst in the left kidney. 5. Previous hyste[place]. [place] CLINICAL HISTORY: Left lower quadrant abdominal pain, nausea. Rectal bleeding. EXAMINATION: Enhanced CT scan of the abdomen and pelvis: 03/17/2020. COMPARISON: Enhanced CT scan of the abdomen and pelvis: 11/17/2009. TECHNIQUE: 3.75 mm axial images from lung bases through ischial tuberosities following administration of intravenous as well as oral contrast were obtained. Sagittal, coronal reconstructions were performed. 75 mL of Isovue 370 was utilized as intravenous contrast. Dose reduction techniques were achieved by using automated exposure control and/or adjustment of mA and/or kV according to patient size and/or use of iterative reconstruction technique. FINDINGS: There are no focal abnormalities of the visualized lung bases. The visualized cardiac, posterior mediastinal structures seem normal. CT ABDOMEN: Liver, spleen, gallbladder, pancreas, adrenal glands, kidneys appear normal except for a low-density lesion in the mid to lower pole anterior cortex of the left kidney, measuring 1.5 cm in size, average Hounsfield units of approximately 18. The abdominal aorta has normal caliber. There are no abnormally dilated loops of small or large bowel. There is no inflammatory process involving the small or large bowel loops. There is a normal-appearing appendix. CT PELVIS: The bladder is normal. The uterus, ovaries are not identified. There is no definite pelvic or retroperitoneal adenopathy. There are no focal fluid collections. The visualized osseous structures demonstrate no gross abnormalities. [place], [place] [facility], [facility] Incoming Radiant Results From [facility] - 03/17/2020 7:59 PM EDT CLINICAL HISTORY: Left lower quadrant abdominal pain, nausea. Rectal bleeding. EXAMINATION: Enhanced CT scan of the abdomen and pelvis: 03/17/2020. COMPARISON: Enhanced CT scan of the abdomen and pelvis: 11/17/2009. TECHNIQUE: 3.75 mm axial images from lung bases through ischial tuberosities following administration of intravenous as well as oral contrast were obtained. Sagittal, coronal reconstructions were performed. 75 mL of Isovue 370 was utilized as intravenous contrast. Dose reduction techniques were achieved by using automated exposure control and/or adjustment of mA and/or kV according to patient size and/or use of iterative reconstruction technique. FINDINGS: There are no focal abnormalities of the visualized lung bases. The visualized cardiac, posterior mediastinal structures seem normal. CT ABDOMEN: Liver, spleen, gallbladder, pancreas, adrenal glands, kidneys appear normal except for a low-density lesion in the mid to lower pole anterior cortex of the left kidney, measuring 1.5 cm in size, average Hounsfield units of approximately 18. The abdominal aorta has normal caliber. There are no abnormally dilated loops of small or large bowel. There is no inflammatory process involving the small or large bowel loops. There is a normal-appearing appendix. CT PELVIS: The bladder is normal. The uterus, ovaries are not identified. There is no definite pelvic or retroperitoneal adenopathy. There are no focal fluid collections. The visualized osseous structures demonstrate no gross abnormalities. IMPRESSION: 1. No obvious explanation for patient's symptoms. 2. No obvious inflammatory process involving the small or large bowel loops. 3. Normal appendix. 4. Simple cyst in the left kidney. 5. Previous hysterectomy. [place], [place] Comprehensive Metabolic Pane ceferino 03-17-2020 Albumin [Mass/Vol] 4.9 g/dL 3.5 - 5.2 g/dL [place] Albumin/Globulin [Mass ratio] NOT REPORTED [place] ALP [Catalytic activity/Vol] 71 U/L 35 - 104 U/L [place] ALT [Catalytic activity/Vol] 12 U/L 5 - 33 U/L [place] Anion gap [Moles/Vol] 11 mmol/L 9 - 17 mmol/L [place] AST [Catalytic activity/Vol] 19 U/L <32 [place] Bilirubin Ql (U) 0.15 mg/dL Low 0.3 - 1.2 mg/dL [place] Bun/Cre Ratio 19 [place] Calcium [Mass/Vol] 10.3 mg/dL 8.6 - 10. 4 mg/dL [place] Chloride [Moles/Vol] 101 mmol/L 98 - 10 7 mmol/L [place] CO2 [Moles/Vol] 26 mmol/L 20 - 31 mmol/L [place] Creatinine [Mass/Vol] 0.88 mg/dL 0.5 - 0.9 mg/dL [place] GFR >60 >60 mL/min [place] GFR Non- >60 >60 mL/min [place] GFR/1.73 sq M predicted among non-blacks MDRD (S/P/Bld) [Vol rate/Area] NOT REPORTED [place] GFR/1.73 sq M predicted among non-blacks MDRD (S/P/Bld) [Vol rate/Area] [place] Comment on above: Average GFR for 30-3 9 years old: 107 mL/min/1.73sq m Chronic Kidney Disease: <60 mL/min/1.73sq m Kidney failure: <15 mL/min/1.73sq m eGFR calculated using average adult body mass. Additional eGFR calculator available at: http://www.menuvox.[employer]/multiple_crcl_2011.htm Glucose [Mass/Vol] 104 mg/dL High 70 - 99 mg/dL [place] Interpretation and review of laboratory results Abnormal [place] Potassium [Moles/Vol] 4.2 mmol/L 3.7 - 5.3 mmol/L [place] Protein [Mass/Vol] 7.8 g/dL 6.4 - 8.3 g/dL [place] Sodium [Moles/Vol] 138 mmol/L 135 - 144 mmol/L [place] Urea nitrogen [Mass/Vol] 17 mg/dL 6 - 20 mg/dL [facility] 03-17-2020 Immature granulocytes (Bld) [#/Vol] NOT REPORTED 0 % [facility] Strep Screenon 01-03-2020 Strep Screen Microbiology PROCEDURE: Strep Screen Culture [R1] SOURCE: Throat BODY SITE: COLLECTED DATE/TIME: 01/01/2020 12:55 EDT RECEIVED DATE/TIME: 01/01/2020 13:21 EDT START DATE/TIME: 01/01/2020 13:21 EDT FREE TEXT SOURCE: Nando Angeles, Joe Collier M.D., Joe Dawkins FINAL REPORTS Final Report [] Verified Date/Time: 01/03/2020 12:05 EDT No Pathogenic Streptococcus Isolated Performing Locations R1: This test was performed at: [facility], [address] [place] [address], [id number]- , Normal [facility] Comment on above: Performed By: #### 1 [id number] #### [facility] [address] [place] [id number] Coding Summary.on 01-02-2020 Coding Summary. CODING DATE: 01/02/2020 FINAL [facility] STATUS: Home (Routine DC) PAYOR: [facility] [place] APC DESCRIPTION 5521 Level 1 Imaging without Contrast 5025 Level 5 Type A ED Visits ADMIT DX: REASON FOR VISIT DX: R50.9 Fever, unspecified J02.9 Acute pharyngitis, unspecified R06.02 Shortness of breath FINAL DX: PRINCIPAL: J06.9 Acute upper respiratory infection, unspecified SECONDARY: PYMT PROC APC STAT DESCRIPTION DOCTOR NAME DATE NOTE: The code number assigned matches the documented diagnosis and / or procedure in the patient's chart. However, the narrative phrase printed from the coding software may appear abbreviated, or result in slightly different terminology. Revised Coded By: Mili Wesley Revised Date Saved: 01/02/2020 09:[address] [facility] ED Clinical Summaryon 2019 ED Clinical Summary [address] [address] ED Clinical Summary Person Information Name: BEAU MARTINEZ [place] Age: 39 Years : 1980 Sex: Female Language: French PCP: SEJAL NAVARRO CNP Marital Status: Phone: [phone] Visit Id: Visit Reason: SOB - Shortness of breath; Body aches; Sore throat - Adult; Fever; SOB,FEVER,COUGH, SORE THROAT Speciality: Acuity: 3 Enc Type: Emergency Med Service: Emergency Arrival: 01/01/2020 11:41:28 Discharge: 01/01/2020 13:45:01 LOS: 000 02:04 Checkin: 01/01/2020 11:41:28 Checkout: 01/01/2020 13:45:01 Dispo Type: Home (Routine DC) EVENTS: Event Name Event Status Request Date/Time Start Date/Time Complete Date/Time Arrive Complete 01/01/2020 11:41:28 01/01/2020 11:41:28 01/01/2020 11:41:28 Document Home Meds Request 01/01/2020 11:41:28 Triage Complete 01/01/2020 11:41:28 01/01/2020 12:02:37 01/01/2020 12:02:37 Bed Assign Complete 01/01/2020 11:51:26 01/01/2020 11:51:26 01/01/2020 11:51:26 Dr Exam Complete 01/01/2020 11:51:26 01/01/2020 11:55:46 01/01/2020 11:55:46 RN Exam Complete 01/01/2020 11:51:26 01/01/2020 12:52:30 01/01/2020 12:52:30 Registration Complete 01/01/2020 11:55:46 01/01/2020 12:38:23 01/01/2020 12:38:23 EKG Cancel 01/01/2020 11:59:49 01/01/2020 12:14:32 Pending Labs Complete 01/01/2020 12:14:04 01/01/2020 13:27:42 Swab Complete 01/01/2020 12:14:04 01/01/2020 13:27:42 X-Ray Complete 01/01/2020 12:14:04 01/01/2020 12:25:10 01/01/2020 12:57:36 Reg Complete Request 01/01/2020 12:38:23 Reg Bed Request Complete 01/01/2020 12:38:23 01/01/2020 12:38:23 01/01/2020 12:38:23 Wet Read Request 01/01/2020 12:57:36 Pending Labs Inlab 01/01/2020 13:19:37 01/01/2020 13:19:37 Lab Inlab 01/01/2020 13:19:37 01/01/2020 13:19:37 Discharge Complete 01/01/2020 13:36:26 01/01/2020 13:45:07 01/01/2020 13:45:07 Transfer Complete 01/01/2020 13:45:07 01/01/2020 13:45:07 01/01/2020 13:45:07 ADDRESS: [facility] [id number] [facility] DOC NOTES: MEDICAL INFORMATION: Prescriptions Given: Medications to Continue with No Changes Other Medications multivitamin, ( Elite oral tablet) 1 Tablets By Mouth every day. Refills: 4. PATIENT EDUCATION INFORMATION: Instructions: Upper Respiratory Infection, Adult Follow up: With: Address: When: SEJAL NAVARRO [address] [place] [phone] Business (1) In 3 days 01/04/2020 Comments: Return to the emergency room if your symptoms get worse, fever, shortness of breath or any new symptoms DIAGNOSIS: 1:Upper respiratory infection Normal [facility] ED Note-Physicianon 01-01-20 ED Note-Physician Basic Information Time Seen: Joe Collier M.D. 01/01/2020 11:55 Chief Complaint Pt. presents to the ed with c/o fever, Sore throat, SOB and body aches. Fever started four days ago. Pt. was with a student that whose mother was in [place] two weeks ago. Pt. has a history of being immunocompromised. History of Present Illness The patient is 39-year-old female who presented to the emergency room with flulike symptoms for the past 4 days. The patient reports dry cough. She reports sore throat. She denies any headache. The patient is complaining of shortness of breath. She denies any chest pain. The patient denies any nausea, vomiting or diarrhea. She denies any abdominal pain. The patient denies any sick contact with somebody who has been diagnosed with COVID?19. She denies any recent traveling. The patient denies any other associated symptoms. Review of Systems Additional ROS info: Except as noted in the above Review of Systems and in the History of Present Illness all other systems have been reviewed and are negative or noncontributory. Physical Exam Vitals & Measurements T: 36.9 ?C (Oral) HR: 80(Peripheral) RR: 18 BP: 122/71 SpO2: 94% HT: 168 cm WT: 75 kg BMI: 26.57 General: alert, no acute distress Skin: warm, dry Head: no trauma, normocephalic Neck: Trachea midline, no tenderness, supple Eye: normal conjunctiva, sclera clear, PERRL, EOMI, vision unchanged ENMT: Oral mucosa moist, no pharyngeal erythema or exudate Cardiovascular: regular rate and rhythm Respiratory: Lungs CTA, respirations non labored, breath sounds equal Gastrointestinal: soft, non distended, no tenderness Extremities: no deformity, no trauma Neurological: Alert and oriented, speech normal, no focal neuro deficits Psychiatric: cooperative, affect appropriate for age Medical Decision Making Patient presented with flulike symptoms. More likely her symptoms are due to upper viral respiratory infection. The chest x-ray shows no acute cardiopulmonary disease. The rapid flu is negative rapid strep is negative. The vital signs are stable. The patient does not appear to be sick. Will discharge patient home with symptomatic treatment and follow-up with her primary care. Assessment/Plan 1. Upper respiratory infection (J06.9: Acute upper respiratory infection, unspecified) Orders: Influenza A&B Ag Rapid Strep w/rfx Strep Screen Culture XR Chest Single View Disposition Plan Patient Discharge Condition Stable Discharge Disposition Discharged home Discharge Prescription List Prescriptions No active prescription medications Follow-up With When Contact Information SEJAL NAVARRO In 3 days 01/04/2020 EDT [address] [place] [address]- Business (1) Additional Instructions: Return to the emergency room if your symptoms get worse, fever, shortness of breath or any new symptoms Patient Education Upper Respiratory Infection, Adult Problem List/Past Medical History Ongoing Adult BMI 27.0-27.9 kg/sq m Historical Endometriosis Knee pain Shoulder pain Procedure/Surgical History knee sx, Shoulder sx. Medications Inpatient No active inpatient medications Home lidocaine Top 5% film Patch, 1 patch(es), Topical, Daily Elite oral tablet, 1 tab(s), Oral, Daily, 4 refills Allergies Latex (Rash) Neosporin (Rash) Social History Alcohol - Denies Alcohol Use, 04/14/2014 Substance Abuse - Denies Substance Abuse, 04/14/2014 Tobacco - Denies Tobacco Use, 04/14/2014 Never (less than 100 in lifetime) Tobacco Use:. Never Smokeless Tobacco Use:., 07/23/2019 Family History Primary malignant neoplasm of prostate: Father. Lab Results Rapid Strep: NEGATIVE1 (01/01/20 12:55:00) Influenzae A Ag: NEGATIVE1 (01/01/20 12:55:00) Influenzae B Ag: NEGATIVE1 (01/01/20 12:55:00) Diagnostic Results XR Chest Single View 01/01/20 13:06:34 IMPRESSION: NO ACUTE INTRATHORACIC PROCESS. EXAM: Portable chest radiograph History: Fever and shortness of breath. Technique: Portable AP view of the chest. Comparison: None available Findings: The cardiomediastinal silhouette is within normal limits. No pneumothorax, pleural effusion, or consolidation. Bones of the thorax appear intact. Signed By: Behzad Wilkes DO All the time I entered the room to examine and discuss the findings with the patient I used appropriate healthcare PPE Normal [facility] Comment on above: Result Comment: Elec tronically Signed By: Nando Angeles, Joe Dawkins\.br\Date and Time Signed: 01/01/20 14:05 EDT ED Patient Education Noteon 01-01-2020 ED Patient Education Note ENT Upper Respiratory Infection, Adult An upper respiratory infection (URI) is also sometimes known as the common cold. The upper respiratory tract includes the nose, sinuses, throat, trachea, and bronchi. Bronchi are the airways leading to the lungs. Most people improve within 1 week, but symptoms can last up to 2 weeks. A residual cough may last even longer. CAUSES Many different viruses can infect the tissues lining the upper respiratory tract. The tissues become irritated and inflamed and often become very moist. Mucus production is also common. A cold is contagious. You can easily spread the virus to others by oral contact. This includes kissing, sharing a glass, coughing, or sneezing. Touching your mouth or nose and then touching a surface, which is then touched by another person, can also spread the virus. SYMPTOMS Symptoms typically develop 1 to 3 days after you come in contact with a cold virus. Symptoms vary from person to person. They may include: ? Runny nose. ? Sneezing. ? Nasal congestion. ? Sinus irritation. ? Sore throat. ? Loss of voice (laryngitis). ? Cough. ? Fatigue. ? Muscle aches. ? Loss of appetite. ? Headache. ? Low-grade fever. DIAGNOSIS You might diagnose your own cold based on familiar symptoms, since most people get a cold 2 to 3 times a year. Your caregiver can confirm this based on your exam. Most importantly, your caregiver can check that your symptoms are not due to another disease such as strep throat, sinusitis, pneumonia, asthma, or epiglottitis. Blood tests, throat tests, and X-rays are not necessary to diagnose a common cold, but they may sometimes be helpful in excluding other more serious diseases. Your caregiver will decide if any further tests are required. RISKS AND COMPLICATIONS You may be at risk for a more severe case of the common cold if you smoke cigarettes, have chronic heart disease (such as heart failure) or lung disease (such as asthma), or if you have a weakened immune system. The very young and very old are also at risk for more serious infections. Bacterial sinusitis, middle ear infections, and bacterial pneumonia can complicate the common cold. The common cold can worsen asthma and chronic obstructive pulmonary disease (COPD). Sometimes, these complications can require emergency medical care and may be life-threatening. PREVENTION The best way to protect against getting a cold is to practice good hygiene. Avoid oral or hand contact with people with cold symptoms. Wash your hands often if contact occurs. There is no clear evidence that vitamin C, vitamin E, echinacea, or exercise reduces the chance of developing a cold. However, it is always recommended to get plenty of rest and practice good nutrition. TREATMENT Treatment is directed at relieving symptoms. There is no cure. Antibiotics are not effective, because the infection is caused by a virus, not by bacteria. Treatment may include: ? Increased fluid intake. Sports drinks offer valuable electrolytes, sugars, and fluids. ? Breathing heated mist or steam (vaporizer or shower). ? Eating chicken soup or other clear broths, and maintaining good nutrition. ? Getting plenty of rest. ? Using gargles or lozenges for comfort. ? Controlling fevers with ibuprofen or acetaminophen as directed by your caregiver. ? Increasing usage of your inhaler if you have asthma. Zinc gel and zinc lozenges, taken in the first 24 hours of the common cold, can shorten the duration and lessen the severity of symptoms. Pain medicines may help with fever, muscle aches, and throat pain. A variety of non-prescription medicines are available to treat congestion and runny nose. Your caregiver can make recommendations and may suggest nasal or lung inhalers for other symptoms. HOME CARE INSTRUCTIONS ? Only take smcq-yos-jzttoyg or prescription medicines for pain, discomfort, or fever as directed by your caregiver. ? Use a warm mist humidifier or inhale steam from a shower to increase air moisture. This may keep secretions moist and make it easier to breathe. ? Drink enough water and fluids to keep your urine clear or pale yellow. ? Rest as needed. ? Return to work when your temperature has returned to normal or as your caregiver advises. You may need to stay home longer to avoid infecting others. You can also use a face mask and careful hand washing to prevent spread of the virus. SEEK MEDICAL CARE IF: ? After the first few days, you feel you are getting worse rather than better. ? You need your caregiver's advice about medicines to control symptoms. ? You develop chills, worsening shortness of breath, or brown or red sputum. These may be signs of pneumonia. ? You develop yellow or brown nasal discharge or pain in the face, especially when you bend forward. These may be signs of sinusitis. ? You develop a fever, swollen neck glands, pain with swallowing, or white areas in the back of your throat. These may be signs of strep throat. SEEK IMMEDIATE MEDICAL CARE IF: ? You have a fever. ? You develop severe or persistent headache, ear pain, sinus pain, or chest pain. ? You develop wheezing, a prolonged cough, cough up blood, or have a change in your usual mucus (if you have chronic lung disease). ? You develop sore muscles or a stiff neck. Document Released: 03/28/2002 Document Revised: 12/24/2012 Document Reviewed: 01/07/2015 ExitCare? Patient Information ?2015 [employer]. This information is not intended to replace advice given to you by your health care provider. Make sure you discuss any questions you have with your health care provider. Normal [facility] ED Patient Summaryon 020 ED Patient Summary [address] [address] Patient Discharge Instructions Person Information Name: BEAU MARTINEZ Age: 39 Years Arrival Date: 01/01/2020 11:41:28 Discharge Diagnosis: 1:Upper respiratory infection Primary Care Physician: SEJAL NAVARRO CNP Provider Information Primary Provider: Joe Collier M.D. [employer] Assistant:None The exam and treatment you received in the Emergency Department were for an urgent problem and are not intended as complete care. It is important that you follow up with a doctor, nurse practitioner, or physician?s clinical medical assistant for ongoing care. If your symptoms become worse or you do not improve as expected and you are unable to reach your usual health care provider, you should return to the Emergency Department. We are available 24 hours a day. BEAU MARTINEZ has been given the following list of patient education materials, prescriptions and follow-up instructions: Follow-up Instructions: With: Address: When: SEJAL NAVARRO [address] [place] [address] Business (1) In 3 days 01/04/2020 Comments: Return to the emergency room if your symptoms get worse, fever, shortness of breath or any new symptoms In the event that this physician does not participate in your insurance network, please consult with your insurance company to find a nearby participating provider. Patient Education Materials: Upper Respiratory Infection, Adult A MESSAGE TO ALL PATIENTS REGARDING OPIOIDS PRESCRIPTION OPIOIDS: WHAT YOU NEED TO KNOW Prescription opioids can be used to help relieve gxrzalhj-ea-eokjks pain and are often prescribed following a surgery or injury, or for certain health conditions. These medications can be an important part of the treatment but also come with serious risks. It is important to work with your healthcare provider to make sure you are getting the safest, most effective care. WHAT ARE THE RISKS AND SIDE EFFECTS OF OPIOID USE? Prescription opioids carry serious risks of addiction and overdose, especially with prolonged use. An opioid overdose, often marked by slowed breathing, can cause sudden . The use of prescription opioids can have a number of side effects as well, even when taken as directed: ? Tolerance?meaning you might need to take more of the medication for the same pain relief ? Physical dependence?meaning you have symptoms of withdrawal when a medication is stopped ? Increased sensitivity to pain ? Constipation ? Nausea, vomiting, and dry mouth ? Sleepiness and dizziness ? Confusion ? Depression ? Low levels of testosterone that can result in lower sex drive, energy, and strength ? Itching and sweating RISKS ARE GREATER WITH: ? History of drug misuse, substance use disorder, or overdose ? Mental health conditions (such as depression or anxiety) ? Sleep apnea ? Older age (65 years and older) ? Avoid alcohol while taking prescription opioids. Also, unless specifically advised by your health care provider, medications to avoid include: ? Benzodiazepines (such as Xanax or Valium) ? Muscle relaxants (such as Soma or Flexeril) ? Hypnotics (such as Ambien or Lunesta) ? Other prescription opioids KNOW YOUR OPTIONS Talk to your health care provider about ways to manage your pain that don?t involve prescription opioids. Some of these options may actually work better and have fewer risks and side effects. Options may include: ? Pain relievers such as acetaminophen, ibuprofen, and naproxen ? Some medication that are also used for depression or seizures ? Physical therapy and exercise ? Cognitive behavioral therapy, a psychological, goal-directed approach, in which patients learn how to modify physical, behavioral, and emotional triggers of pain and stress. IF YOU ARE PRESCRIBED OPIOIDS FOR PAIN: ? Never take opioids in greater amounts or more often than prescribed. ? Follow up with your primary health care provider. o Work together to create a plan on how to manage your pain. o Talk about ways to help manage your pain that don?t involve prescription opioids. o Talk about any and all concerns and side effects. ? Help prevent misuse and abuse o Never sell or share prescription opioids. o Never use another person?s prescription opioids. ? Store prescription opioids in a secure place and out of reach of others (this may include visitors, children, friends, and family). ? Safely dispose of unused prescription opioids: Find your community drug take-back program or your pharmacy mail-back program, or flush them down the toilet, following guidance from the Food and Drug Administration (www.fda.gov/Drugs/Re sourcesForYou). ? Visit www.cdc.gov/drugoverd ose to learn about the risks of opioids abuse and overdose. ? If you believe you may be struggling with addiction, tell your health acute care physical therapist and ask for guidance or call [employer] at 6-240-066-OMNS. v Source: [place] Department of Health and Human Services/Center for Disease Control & Prevention [facility] Medications Given: Medication Dose Route No medications found. Medication Information: Medications to Continue with No Changes Other Medications multivitamin, ( Elite oral tablet) 1 Tablets By Mouth every day. Refills: 4. Comment: Pharmacy Information: [facility] Sheryl Oreilly Thank you for choosing [facility] Patient Education Materials: Upper Respiratory Infection, Adult An upper respiratory infection (URI) is also sometimes known as the common cold. The upper respiratory tract includes the nose, sinuses, throat, trachea, and bronchi. Bronchi are the airways leading to the lungs. Most people improve within 1 week, but symptoms can last up to 2 weeks. A residual cough may last even longer. CAUSES Many different viruses can infect the tissues lining the upper respiratory tract. The tissues become irritated and inflamed and often become very moist. Mucus production is also common. A cold is contagious. You can easily spread the virus to others by oral contact. This includes kissing, sharing a glass, coughing, or sneezing. Touching your mouth or nose and then touching a surface, which is then touched by another person, can also spread the virus. SYMPTOMS Symptoms typically develop 1 to 3 days after you come in contact with a cold virus. Symptoms vary from person to person. They may include: ? Runny nose. ? Sneezing. ? Nasal congestion. ? Sinus irritation. ? Sore throat. ? Loss of voice (laryngitis). ? Cough. ? Fatigue. ? Muscle aches. ? Loss of appetite. ? Headache. ? Low-grade fever. DIAGNOSIS You might diagnose your own cold based on familiar symptoms, since most people get a cold 2 to 3 times a year. Your caregiver can confirm this based on your exam. Most importantly, your caregiver can check that your symptoms are not due to another disease such as strep throat, sinusitis, pneumonia, asthma, or epiglottitis. Blood tests, throat tests, and X-rays are not necessary to diagnose a common cold, but they may sometimes be helpful in excluding other more serious diseases. Your caregiver will decide if any further tests are required. RISKS AND COMPLICATIONS You may be at risk for a more severe case of the common cold if you smoke cigarettes, have chronic heart disease (such as heart failure) or lung disease (such as asthma), or if you have a weakened immune system. The very young and very old are also at risk for more serious infections. Bacterial sinusitis, middle ear infections, and bacterial pneumonia can complicate the common cold. The common cold can worsen asthma and chronic obstructive pulmonary disease (COPD). Sometimes, these complications can require emergency medical care and may be life-threatening. PREVENTION The best way to protect against getting a cold is to practice good hygiene. Avoid oral or hand contact with people with cold symptoms. Wash your hands often if contact occurs. There is no clear evidence that vitamin C, vitamin E, echinacea, or exercise reduces the chance of developing a cold. However, it is always recommended to get plenty of rest and practice good nutrition. TREATMENT Treatment is directed at relieving symptoms. There is no cure. Antibiotics are not effective, because the infection is caused by a virus, not by bacteria. Treatment may include: ? Increased fluid intake. Sports drinks offer valuable electrolytes, sugars, and fluids. ? Breathing heated mist or steam (vaporizer or shower). ? Eating chicken soup or other clear broths, and maintaining good nutrition. ? Getting plenty of rest. ? Using gargles or lozenges for comfort. ? Controlling fevers with ibuprofen or acetaminophen as directed by your caregiver. ? Increasing usage of your inhaler if you have asthma. Zinc gel and zinc lozenges, taken in the first 24 hours of the common cold, can shorten the duration and lessen the severity of symptoms. Pain medicines may help with fever, muscle aches, and throat pain. A variety of non-prescription medicines are available to treat congestion and runny nose. Your caregiver can make recommendations and may suggest nasal or lung inhalers for other symptoms. HOME CARE INSTRUCTIONS ? Only take [id number] or prescription medicines for pain, discomfort, or fever as directed by your caregiver. ? Use a warm mist humidifier or inhale steam from a shower to increase air moisture. This may keep secretions moist and make it easier to breathe. ? Drink enough water and fluids to keep your urine clear or pale yellow. ? Rest as needed. ? Return to work when your temperature has returned to normal or as your caregiver advises. You may need to stay home longer to avoid infecting others. You can also use a face mask and careful hand washing to prevent spread of the virus. SEEK MEDICAL CARE IF: ? After the first few days, you feel you are getting worse rather than better. ? You need your caregiver's advice about medicines to control symptoms. ? You develop chills, worsening shortness of breath, or brown or red sputum. These may be signs of pneumonia. ? You develop yellow or brown nasal discharge or pain in the face, especially when you bend forward. These may be signs of sinusitis. ? You develop a fever, swollen neck glands, pain with swallowing, or white areas in the back of your throat. These may be signs of strep throat. SEEK IMMEDIATE MEDICAL CARE IF: ? You have a fever. ? You develop severe or persistent headache, ear pain, sinus pain, or chest pain. ? You develop wheezing, a prolonged cough, cough up blood, or have a change in your usual mucus (if you have chronic lung disease). ? You develop sore muscles or a stiff neck. Document Released: 03/28/2002 Document Revised: 12/24/2012 Document Reviewed: 01/07/2015 ExitCare? Patient Information ?2015 [employer]. This information is not intended to replace advice given to you by your health care provider. Make sure you discuss any questions you have with your health care provider. MICHELLE Doe CASSANDRA K , have received the following patient education materials/instruction s and have verbalized understanding: Patient Education Materials: Upper Respiratory Infection, Adult Follow-up Instructions: With: Address: When: SEJAL NAVARRO [address] [place], [place] [id number] Business (1) In 3 days 01/04/2020 Comments: Return to the emergency room if your symptoms get worse, fever, shortness of breath or any new symptoms Patient Signature Date Clinician/Nurse Signature Date 01/01/2020 13:45:[address] [facility] Influenza A&B Agon 0 Influenzae A Ag Negative Normal Negative [facility] Comment on above: Performed By: #### 1 [id number] #### [facility] [address] [place] [address] Influenzae B Ag Negative Normal Negative [facility] Comment on above: Result Comment: Test sensitivity and specificity vary for age group, specimen type, antigen types, and prevalence of disease. Test results must be evaluated in conjunction with other clinical data available to the physician. Individuals who received nasally administered Influenza A vaccine may have positive test results up to 3 days after vaccination. Performed By: #### 1 [id number] #### [facility] [address] [place] [address] XR Chest Single Viewon 12-31 XR Chest Single View Exam Date/Time: 01/01/2020 12:57 EDT Reason for Exam: Cough Report IMPRESSION: NO ACUTE INTRATHORACIC PROCESS. EXAM: Portable chest radiograph History: Fever and shortness of breath. Technique: Portable AP view of the chest. Comparison: None available Findings: The cardiomediastinal silhouette is within normal limits. No pneumothorax, pleural effusion, or consolidation. Bones of the thorax appear intact. FINAL REPORT Dictated: 01/01/2020 1:03 pm Behzad Wilkes DO Signed (Electronic Signature): 01/01/2020 1:03 pm Signed by: Behzad Wilkes DO Transcribed by: STEPH Technologist: Normal [facility] Ferritinon 07-31-2019 Ferritin [Mass/Vol] 127 ug/L Normal 13-150 [facility] Comment on above: Performed By: #### F RADHA, FEBC #### [address] [address] Barbecue Cook: David Miguel MD #### LD, CDP #### [address] [place], [place] [id number] Barbecue Cook: Kyler Guardado MD Iron Binding Cap.on 07-31-20 19 % Fe Saturation 38 % Normal 20-55 [facility] Comment on above: Performed By: #### F RADHA, FEBC #### [address] [address] Barbecue Cook: David Miguel MD #### LD, CDP #### [address] [place] [address] Barbecue Cook: Kyler Guardado MD Iron [Mass/Vol] 109 ug/dL Normal 37-145 [facility] Comment on above: Performed By: #### F RADHA, FEBC #### [address] [address] Barbecue Cook: David Miguel MD #### LD, CDP #### [address] [place], [place] [id number] Barbecue Cook: Kyler Guardado MD Total Fe Binding Cap 289 ug/dL Normal 250-450 [facility] Comment on above: Performed By: #### F RADHA, FEBC #### [address] [address] Barbecue Cook: David Miguel MD #### LD, CDP #### [address] [place] [address] Barbecue Cook: Kyler Guardado MD Unbound Fe Bind Cap 180 ug/dL Normal 112-347 [facility] Comment on above: Performed By: #### F RADHA, MICHAELBC #### [facility] [address] [place] [address] Barbecue Cook: David Miguel MD #### LD, CDP #### [facility] [address] [place] [address] Barbecue Cook: Kyler Guardado MD CBC With Auto Differentialon 07-30-2019 Basophils (Bld) [#/Vol] 0.03 10*3/uL [place], [place] Basophils/100 WBC (Bld) 0 % 0 - 2 % [place] Differential Type NOT REPORTED [place] Eosinophils (Bld) [#/Vol] 0.06 10*3/uL [place] Eosinophils/100 WBC (Bld) 1 % 1 - 4 % [place] Erythrocyte distribution width (RBC) [Ratio] 13.2 % 11.8 - 14.4 % [place] Hematocrit (Bld) [Volume fraction] 42.9 % 36.3 - 47.1 % [place] Hemoglobin (Bld) [Mass/Vol] 13.9 g/dL 11.9 - 15.1 g/dL [place] Immature granulocytes (Bld) [#/Vol] 1 % High 0 [place] Immature granulocytes (Bld) [#/Vol] 0.04 10*3/uL [place] Interpretation and review of laboratory results Abnormal [place] Lymphocytes (Bld) [#/Vol] 2.42 10*3/uL [place] Lymphocytes/100 WBC (Bld) 33 % 24 - 43 % [place] MCH (RBC) [Entitic mass] 30.2 pg 25.2 - 33.5 pg [place] MCHC (RBC) [Mass/Vol] 32.4 g/dL 28.4 - 34.8 g/dL [place] MCV (RBC) [Entitic vol] 93.3 fL 82.6 - 102.9 fL [place] Monocytes (Bld) [#/Vol] 0.45 10*3/uL [place] Monocytes/100 WBC (Bld) 6 % 3 - 12 % [place] Platelet mean volume (Bld) [Entitic vol] 10.4 fL 8.1 - 13.5 fL [place] Platelets (Bld) [#/Vol] NOT REPORTED [place] Platelets (Bld) [#/Vol] 189 10*3/uL [place] RBC (Bld) [#/Vol] 4.60 10*6/uL 3.95 - 5.1 1 m/uL [place] RBC morphology finding Nom (Bld) NOT REPORTED [place] Segmented neutrophils/100 WBC (Bld) 59 % 36 - 65 % [place] Segs Absolute 4.24 [place] WBC (Bld) [#/Vol] 7.2 10*3/uL [place] WBC (Bld) [#/Vol] 0.0 10*3/uL 0.0 per 10 0 WBC [place] WBC Morphology NOT REPORTED [place] CBC with Diffon 07-30-2019 Abs. Basophil 0.03 k/uL Normal 0.00-0.20 [facility] Comment on above: Performed By: #### DAYANA GAYTAN #### [facility] [employer] [address] [place], [place] [id number] Barbecue Cook: David Miguel MD #### LUIS, CDP #### [facility] [address] [place] [address] Barbecue Cook: Kyler Guardado MD Abs.Imm.Granulocyte 0.04 k/uL Normal 0.00-0.30 [facility] Comment on above: Performed By: #### DAYANA GAYTAN #### [facility] [address] [place] [address] Barbecue Cook: David Miguel MD #### LD, CDP #### [facility] [address] [place] [address] Barbecue Cook: Kyler Guardado MD Abs.Neutrophil (Seg) 4.24 k/uL Normal 1.50-8.10 [facility] Comment on above: Performed By: #### F RADHA, FEBC #### [address] [address] Barbecue Cook: David Miguel MD #### LD, CDP #### [facility] [address] [place] [address] Barbecue Cook: Kyler Guardado MD Basophils/100 WBC (Bld) 0 % Normal 0-2 [facility] Comment on above: Performed By: #### F RADHA, FEBC #### [address] [address] Barbecue Cook: David Miguel MD #### LD, CDP #### [facility] [address] [place] [id number] Barbecue Cook: Kyler Guardado MD Eosinophils (Bld) [#/Vol] 0.06 10*3/uL Normal 0.00-0.44 [facility] Comment on above: Performed By: #### F RADHA, FEBC #### [address] [address] Barbecue Cook: David Miguel MD #### LD, CDP #### [facility] [address] [place], [place] [id number] Barbecue Cook: Kyler Guardado MD Eosinophils/100 WBC (Bld) 1 % Normal 1-4 [facility] Comment on above: Performed By: #### F RADHA, FEBC #### [address] [address] Barbecue Cook: David Miguel MD #### LD, CDP #### [facility] [address] [place], [place] [id number] Barbecue Cook: Kyler Guardado MD Erythrocyte distribution width (RBC) [Ratio] 13.2 % Normal 11.8-14.4 [facility] Comment on above: Performed By: #### F RADHA, FEBC #### [address] [id number] Barbecue Cook: David Miguel MD #### LD, CDP #### [address] [place], [place] 8[address] Barbecue Cook: Kyler Guardado MD Hematocrit (Bld) [Volume fraction] 42.9 % Normal 36.3-47.1 [facility] Comment on above: Performed By: #### F RADHA, FEBC #### [address] [id number] Barbecue Cook: David Miguel MD #### LUIS, CDP #### [address] [place], [place] [phone] Barbecue Cook: Kyler Guardado MD Hemoglobin (Bld) [Mass/Vol] 13.9 g/dL Normal 11.9-15.1 [facility] Comment on above: Performed By: #### F RADHA, FEBC #### [address] [address] Barbecue Cook: David Miguel MD #### LD, CDP #### [address] [place], [place] [id number] Barbecue Cook: Kyler Guardado MD Immature granulocytes (Bld) [#/Vol] 1 % High 0 [facility] Comment on above: Performed By: #### F RADHA, FEBC #### [address] [address] Barbecue Cook: David Miguel MD #### LD, CDP #### [address] [place], [place] [address] Barbecue Cook: Kyler Guardado MD Lymphocytes (Bld) [#/Vol] 2.42 10*3/uL Normal 1.10-3.70 [facility] Comment on above: Performed By: #### Vilma GARCIA, FEBC #### [address] [id number] Barbecue Cook: David Miguel MD #### LUIS, CDP #### [address] [place], [place] [id number] Barbecue Cook: Kyler Guardado MD Lymphocytes/100 WBC (Bld) 33 % Normal 24-43 [facility] Comment on above: Performed By: #### Vilma GARCIA, FEBC #### [address] [id number] Barbecue Cook: David Miguel MD #### LUIS, CDP #### [address] [place], [place] [id number] Barbecue Cook: Kyler Guardado MD MCH (RBC) [Entitic mass] 30.2 pg Normal 25.2-33.5 [facility] Comment on above: Performed By: #### Vilma GARCIA, FEBC #### [address] [id number] Barbecue Cook: David Miguel MD #### LUIS, CDP #### [address] [place], [place] [id number] Barbecue Cook: Kyler Guardado MD MCHC (RBC) [Mass/Vol] 32.4 g/dL Normal 28.4-34.8 [facility] Comment on above: Performed By: #### F RADHA, FEBC #### [address] [id number] Barbecue Cook: David Miguel MD #### LUIS, CDP #### [address] [place], [place] [phone] Barbecue Cook: Kyler Guardado MD MCV (RBC) [Entitic vol] 93.3 fL Normal 82.6-102.9 [facility] Comment on above: Performed By: #### F RADHA, FEBC #### [address] [address] Barbecue Cook: David Miguel MD #### LD, CDP #### [address] [place], [place] [id number] Barbecue Cook: Kyler Guardado MD Monocytes (Bld) [#/Vol] 0.45 10*3/uL Normal 0.10-1.20 [facility] Comment on above: Performed By: #### F RADHA, FEBC #### [address] [address] Barbecue Cook: David Miguel MD #### LD, CDP #### [address] [place], [place] [phone] Barbecue Cook: Kyler Guardado MD Monocytes/100 WBC (Bld) 6 % Normal 3-12 [facility] Comment on above: Performed By: #### F RADHA, FEBC #### [address] [address] Barbecue Cook: David Miguel MD #### LD, CDP #### [address] [place], [place] [id number] Barbecue Cook: Kyler Guardado MD Neutrophil (Seg) 59 % Normal 36-65 [facility] Comment on above: Performed By: #### F RADHA, FEBC #### [address] [address] Barbecue Cook: David Miguel MD #### LD, CDP #### [address] [place], [place] 865[address]83 Barbecue Cook: Kyler Guardado MD NRBC Automated 0.0 per [address] [facility] Comment on above: Performed By: #### MICHAEL GAYTANBC #### [address] [address] Barbecue Cook: David Miguel MD #### LD, CDP #### [facility] [address] [place] [address] [place] [id number] Barbecue Cook: Kyler Guardado MD Platelet mean volume (Bld) [Entitic vol] 10.4 fL Normal 8.1-13.5 [facility] Comment on above: Performed By: #### DAYANA GAYTAN #### [address] [id number] Barbecue Cook: David Miguel MD #### LUIS, CDP #### [address] [place] [phone] Barbecue Cook: Kyler Guardado MD Platelets (Bld) [#/Vol] 189 10*3/uL Normal 138-453 [facility] Comment on above: Performed By: #### DAYANA GAYTAN #### [address] [address] Barbecue Cook: David Miguel MD #### LUIS, CDP #### [address] [place] [phone] Barbecue Cook: Kyler Guardado MD RBC (Bld) [#/Vol] 4.60 10*6/uL Normal 3.95-5.11 [facility] Comment on above: Performed By: #### Vilma GARCIA FEBC #### [address] [phone] Barbecue Cook: David Miguel MD #### LD, CDP #### [address] [place] [phone] Barbecue Cook: Kyler Guardado MD WBC (Bld) [#/Vol] 7.2 10*3/uL Normal 3.5-11.3 [facility] Comment on above: Performed By: #### F RADHA, FEBC #### [address] [address] Barbecue Cook: David Miguel MD #### LD, CDP #### [address] [place] [address] Barbecue Cook: Kyler Guardado MD Auto Diff Performed NOT REPORTED Normal [facility] Comment on above: Performed By: #### F RADHA, FEBC #### [address] [address] Barbecue Cook: David Miguel MD #### LD, CDP #### [address] [place] [phone] Barbecue Cook: Kyler Guardado MD Platelets (Bld) [#/Vol] NOT REPORTED Normal [facility] Comment on above: Performed By: #### F RADHA, FEBC #### [address] [address] Barbecue Cook: David Miguel MD #### LD, CDP #### [address] [place], [place] 6100783 Barbecue Cook: Kyler Guardado MD RBC morphology finding Nom (Bld) NOT REPORTED Normal [facility] Comment on above: Performed By: #### F RADHA, FEBC #### [address] [address] Barbecue Cook: David Miguel MD #### LD, CDP #### [address] [place], [place] [phone] Barbecue Cook: Kyler Guardado MD WBC Morphology NOT REPORTED Normal [facility] Comment on above: Performed By: #### F RADHA, FEBC #### [facility] [address] [place] [address] Barbecue Cook: David Miguel MD #### LD, CDP #### [facility] [address] [place], [place] [phone] Barbecue Cook: Kyler Guardado MD Lactate Dehydrogenaseon 07-16 LDH [Catalytic activity/Vol] 146 U/L Normal 135-214 [facility] Comment on above: Performed By: #### F RADHA FEBC #### [facility] [address] [place] [address] Barbecue Cook: David Miguel MD #### LD, CDP #### [facility] [address] [place] [address] [place] [address] Barbecue Cook: Kyler Guardado MD LD 146 U/L 135 - 214 U/L [place], [place] US ABDOMEN LIMITEDon 019 US ABDOMEN LIMITED EXAMINATION: LIMITED ABDOMINAL ULTRASOUND 07/30/2019 9:32 am COMPARISON: April 16, 2019 HISTORY: ORDERING SYSTEM PROVIDED HISTORY: Splenomegaly TECHNOLOGIST PROVIDED HISTORY: evaluate spleen, please copare with prior FINDINGS: Ultrasound of the spleen was performed. Splenic size measures 9.1 x 4.9 x 4.5 cm (estimated volume of 104 mL), previously 14.9 x 6.4 x 13.6 cm (estimated volume of 680 mL). No focal abnormality identified. Incidental cleft or accessory lobe is noted. No free fluid. IMPRESSION: Interval decrease in size of the spleen, now within normal limits. Interpreted by: Adarsh Shelley MD Signed by: Adarsh Shelley MD 07/30/[address] [facility] Coxsackie B Abon 04-28-2019 Coxsackie tp. B1 <1:10 Normal <1:10 [facility] Comment on above: Performed By: #### R ETCT, LD, MONOX, TSHX, CDP, CMVM, SED, CK, B12FOL, PHEP, ANASCX, PATH, EBVPRO #### [facility] [address] [place] [address] Barbecue Cook: MD Karl Howell B2 <1:10 Normal <1:10 [facility] Comment on above: Performed By: #### R ETCT, LD, MONOX, TSHX, CDP, CMVM, SED, CK, B12FOL, PHEP, ANASCX, PATH, EBVPRO #### [address] [id number] Barbecue Cook: MD Karl Howell B3 1:160 Normal <1:10 [facility] Comment on above: Performed By: #### R ETCT, LD, MONOX, TSHX, CDP, CMVM, SED, CK, B12FOL, PHEP, ANASCX, PATH, EBVPRO #### [place] [address] Barbecue Cook: MD Karl Howell B4 >= 1:640 Normal <1:10 [facility] Comment on above: Performed By: #### R ETCT, LD, MONOX, TSHX, CDP, CMVM, SED, CK, B12FOL, PHEP, ANASCX, PATH, EBVPRO #### [place] [address] Barbecue Cook: MD Karl Howell B5 1:20 Normal <1:10 [facility] Comment on above: Performed By: #### R ETCT, LD, MONOX, TSHX, CDP, CMVM, SED, CK, B12FOL, PHEP, ANASCX, PATH, EBVPRO #### [place] [address] Barbecue Cook: MD Karl Howell B6 <1:10 Normal <1:10 [facility] Comment on above: Result Comment: (NOT E) INTERPRETIVE INFORMATION: Coxsackie B Virus Single positive antibody titers of greater than or equal to 1:80 may indicate past or current infection. Sero- conversion or an increase in titers between acute and convalescent sera of at least fourfold is considered strong evidence of current or recent infection. Performed by [facility], [address] [place] [id number] [email or web address], Carlos Leonard MD, Lab. Director Performed By: #### R ETCT, LD, MONOX, TSHX, CDP, CMVM, SED, CK, B12FOL, PHEP, ANASCX, PATH, EBVPRO #### [address] [phone] Barbecue Cook: David Miguel MD Cult,Bloodon 04-23-2019 Cult,Blood Specimen Description .BLOOD Special Requests RT HAND 7 ML Culture NO GROWTH 6 DAYS Report Status FINAL 04/23/2019 Normal [facility] Comment on above: Performed By: #### R ETCT, LD, MONOX, TSHX, CDP, CMVM, SED, CK, B12FOL, PHEP, ANASCX, PATH, EBVPRO #### [address] [address] Barbecue Cook: David Miguel MD Cult,Blood Specimen Description .BLOOD Special Requests RT AC 6 ML Culture NO GROWTH 6 DAYS Report Status FINAL 04/23/2019 Normal [facility] Comment on above: Performed By: #### R ETCT, LD, MONOX, TSHX, CDP, CMVM, SED, CK, B12FOL, PHEP, ANASCX, PATH, EBVPRO #### [address] [address] Barbecue Cook: David Miguel MD Coxsackie A9 Titeron 019 Coxsackie A9 Titer <1:8 Normal <1:8 [facility] Comment on above: Result Comment: (NOT E) INTERPRETIVE INFORMATION: Coxsackie A Serotype 9 Titer Single positive antibody titers of greater than 1:32 may indicate past or current infection. Seroconversion or an increase in titers between acute and convalescent sera of at least fourfold is considered strong evidence of current or recent infection. Performed by [facility], [address] [place] [id number] [email or web address], Carlos Leonard MD, Lab. Director Performed By: #### R ETCT, LD, MONOX, TSHX, CDP, CMVM, SED, CK, B12FOL, PHEP, ANASCX, PATH, EBVPRO #### [address] [id number] Barbecue Cook: David Miguel MD Hao Smyth Panelon 019 EBV (VCA) Ab, IgG 733 U/mL High <100 [facility] Comment on above: Performed By: #### R ETCT, LD, MONOX, TSHX, CDP, CMVM, SED, CK, B12FOL, PHEP, ANASCX, PATH, EBVPRO #### [address] [id number] Barbecue Cook: David Miguel MD EBV (VCA) Ab, IgM 22 U/mL Normal <100 [facility] Comment on above: Performed By: #### R ETCT, LD, MONOX, TSHX, CDP, CMVM, SED, CK, B12FOL, PHEP, ANASCX, PATH, EBVPRO #### [address] [id number] Barbecue Cook: David Miguel MD EBV Early Ab, IgG 18 U/mL Normal <100 [facility] Comment on above: Performed By: #### R ETCT, LD, MONOX, TSHX, CDP, CMVM, SED, CK, B12FOL, PHEP, ANASCX, PATH, EBVPRO #### [address] [address] Barbecue Cook: David Miguel MD EBV Interpretation (NOTE) Normal [facility] Comment on above: Result Comment: Reference Range: Negative <100 U/mL Positive >120 U/mL Equivocal 100-120 U/mL Guidelines for the Interpretation of Hao-Smyth Viral Serologies Antibodies Clinical Situation IgG-VCA EBNA EA IgM-VCA No past infection - - - - Acute infection + - + + Convalescent phase + + +/- +/- Past infection + + - - Chronic or reactivated + + + - infection + = Antibody present - = Antibody absent Reference: Clinical Diagnosis and Management by Laboratory Methods; 17 Edition, Shen Nagy M.D. Performed By: #### R ETCT, LD, MONOX, TSHX, CDP, CMVM, SED, CK, B12FOL, PHEP, ANASCX, PATH, EBVPRO #### [place] [id number] Barbecue Cook: David Miguel MD EBV Nuclear Ab, IgG 429 U/mL High <100 [facility] Comment on above: Performed By: #### R ETCT, LD, MONOX, TSHX, CDP, CMVM, SED, CK, B12FOL, PHEP, ANASCX, PATH, EBVPRO #### [place] [id number] Barbecue Cook: David Miguel MD Mycoplasma Ab, IgMon 019 Mycoplasma Ab, IgM 0.20 Normal <0.91 [facility] Comment on above: Result Comment: Reference Range: <=0.90 Negative 0.91-1.09 Equivocal >=1.10 Positive Performed By: #### R ETCT, LD, MONOX, TSHX, CDP, CMVM, SED, CK, B12FOL, PHEP, ANASCX, PATH, EBVPRO #### [address] [address] Barbecue Cook: David Miguel MD Smear to Pathologiston 04-19 Smear to Pathologist SEE REPORT Normal [facility] Comment on above: Result Comment: REVIEWING PATHOLOGIST: ELECTRONICALLY SIGNED. KYLER GUARDADO M.D. Performed By: #### R ETCT, LD, MONOX, TSHX, CDP, CMVM, SED, CK, B12FOL, PHEP, ANASCX, PATH, EBVPRO #### [facility] [employer] [address] [place] [address] Barbecue Cook: David Miguel MD Basic Metab w/rfx MGon 04-18 (cont.) Normal [facility] Comment on above: Result Comment: Aver age GFR for 30-39 years old: 107 mL/min/1.73sq m Chronic Kidney Disease: <60 mL/min/1.73sq m Kidney failure: <15 mL/min/1.73sq m eGFR calculated using average adult body mass. Additional eGFR calculator available at: http://www.Freepath/multiple_crcl_2011.htm Performed By: #### R ETCT, LD, MONOX, TSHX, CDP, CMVM, SED, CK, B12FOL, PHEP, ANASCX, PATH, EBVPRO #### [facility] [employer] [address] [place] [address] Barbecue Cook: David Miguel MD Anion gap [Moles/Vol] 8 mmol/L Low 9-17 [facility] Comment on above: Performed By: #### R ETCT, LD, MONOX, TSHX, CDP, CMVM, SED, CK, B12FOL, PHEP, ANASCX, PATH, EBVPRO #### [facility] [employer] [address] [place] [address] Barbecue Cook: David Miguel MD Calcium [Mass/Vol] 8.4 mg/dL Low 8.6-10.4 [facility] Comment on above: Performed By: #### R ETCT, LD, MONOX, TSHX, CDP, CMVM, SED, CK, B12FOL, PHEP, ANASCX, PATH, EBVPRO #### [facility] [employer] [address] [place] [address] [id number] Barbecue Cook: David Miguel MD Chloride [Moles/Vol] 107 mmol/L Normal 98-107 [facility] Comment on above: Performed By: #### R ETCT, LD, MONOX, TSHX, CDP, CMVM, SED, CK, B12FOL, PHEP, ANASCX, PATH, EBVPRO #### [address] [id number] Barbecue Cook: David Miguel MD CO2 [Moles/Vol] 26 mmol/L Normal 20-31 [facility] Comment on above: Performed By: #### R ETCT, LD, MONOX, TSHX, CDP, CMVM, SED, CK, B12FOL, PHEP, ANASCX, PATH, EBVPRO #### [address] [id number] Barbecue Cook: David Miguel MD Creatinine [Mass/Vol] 0.64 mg/dL Normal 0.50-0.90 [facility] Comment on above: Performed By: #### R ETCT, LD, MONOX, TSHX, CDP, CMVM, SED, CK, B12FOL, PHEP, ANASCX, PATH, EBVPRO #### [address] [id number] Barbecue Cook: David Miguel MD GFR, Amer >60 Normal >60 [facility] Comment on above: Performed By: #### R ETCT, LD, MONOX, TSHX, CDP, CMVM, SED, CK, B12FOL, PHEP, ANASCX, PATH, EBVPRO #### [address] [address] Barbecue Cook: David Miguel MD GFR,non Amer >60 Normal >60 [facility] Comment on above: Performed By: #### R ETCT, LD, MONOX, TSHX, CDP, CMVM, SED, CK, B12FOL, PHEP, ANASCX, PATH, EBVPRO #### [address] [id number] Barbecue Cook: David Miguel MD Glucose [Mass/Vol] 94 mg/dL Normal 70-99 [facility] Comment on above: Performed By: #### R ETCT, LD, MONOX, TSHX, CDP, CMVM, SED, CK, B12FOL, PHEP, ANASCX, PATH, EBVPRO #### [address] [id number] Barbecue Cook: David Miguel MD Potassium [Moles/Vol] 4.1 mmol/L Normal 3.7-5.3 [facility] Comment on above: Performed By: #### R ETCT, LD, MONOX, TSHX, CDP, CMVM, SED, CK, B12FOL, PHEP, ANASCX, PATH, EBVPRO #### [address] [address] Barbecue Cook: David Miguel MD Sodium [Moles/Vol] 141 mmol/L Normal 135-144 [facility] Comment on above: Performed By: #### R ETCT, LD, MONOX, TSHX, CDP, CMVM, SED, CK, B12FOL, PHEP, ANASCX, PATH, EBVPRO #### [address] [address] Barbecue Cook: David Miguel MD Urea nitrogen [Mass/Vol] 12 mg/dL Normal 6-20 [facility] Comment on above: Performed By: #### R ETCT, LD, MONOX, TSHX, CDP, CMVM, SED, CK, B12FOL, PHEP, ANASCX, PATH, EBVPRO #### [address] [id number] Barbecue Cook: David Miguel MD BUN/CRE Ratio NOT REPORTED Normal 9-20 [facility] Comment on above: Performed By: #### R ETCT, LD, MONOX, TSHX, CDP, CMVM, SED, CK, B12FOL, PHEP, ANASCX, PATH, EBVPRO #### [address] [id number] Barbecue Cook: David Miguel MD Staging: NOT REPORTED Normal [facility] Comment on above: Performed By: #### R ETCT, LD, MONOX, TSHX, CDP, CMVM, SED, CK, B12FOL, PHEP, ANASCX, PATH, EBVPRO #### [place] [address] Barbecue Cook: David Miguel MD CBC with Diffon 04-18-2019 Abs. Basophil 0.00 k/uL Normal 0.0-0.2 [facility] Comment on above: Performed By: #### R ETCT, LD, MONOX, TSHX, CDP, CMVM, SED, CK, B12FOL, PHEP, ANASCX, PATH, EBVPRO #### [place] [id number] Barbecue Cook: David Miguel MD Abs.Imm.Granulocyte 0.00 k/uL Normal 0.00-0.30 [facility] Comment on above: Performed By: #### R ETCT, LD, MONOX, TSHX, CDP, CMVM, SED, CK, B12FOL, PHEP, ANASCX, PATH, EBVPRO #### [place] [id number] Barbecue Cook: David Miguel MD Abs.Neutrophil (Seg) 0.77 k/uL Low 1.8-7.7 [facility] Comment on above: Performed By: #### R ETCT, LD, MONOX, TSHX, CDP, CMVM, SED, CK, B12FOL, PHEP, ANASCX, PATH, EBVPRO #### [place] [address] Barbecue Cook: David Miguel MD Basophils/100 WBC (Bld) 0 % Normal 0-2 [facility] Comment on above: Performed By: #### R ETCT, LD, MONOX, TSHX, CDP, CMVM, SED, CK, B12FOL, PHEP, ANASCX, PATH, EBVPRO #### [address] [address] Barbecue Cook: David Miguel MD Eosinophils (Bld) [#/Vol] 0.03 10*3/uL Normal 0.0-0.4 [facility] Comment on above: Performed By: #### R ETCT, LD, MONOX, TSHX, CDP, CMVM, SED, CK, B12FOL, PHEP, ANASCX, PATH, EBVPRO #### [address] [address] Barbecue Cook: David Miguel MD Eosinophils/100 WBC (Bld) 1 % Normal 1-4 [facility] Comment on above: Performed By: #### R ETCT, LD, MONOX, TSHX, CDP, CMVM, SED, CK, B12FOL, PHEP, ANASCX, PATH, EBVPRO #### [place] [id number] Barbecue Cook: David Miguel MD Immature granulocytes (Bld) [#/Vol] 0 % Normal 0 [facility] Comment on above: Performed By: #### R ETCT, LD, MONOX, TSHX, CDP, CMVM, SED, CK, B12FOL, PHEP, ANASCX, PATH, EBVPRO #### [place] [address] Barbecue Cook: David Miguel MD Lymphocytes (Bld) [#/Vol] 2.08 10*3/uL Normal 1.0-4.8 [facility] Comment on above: Performed By: #### R ETCT, LD, MONOX, TSHX, CDP, CMVM, SED, CK, B12FOL, PHEP, ANASCX, PATH, EBVPRO #### [address] [phone] Barbecue Cook: David Miguel MD Lymphocytes/100 WBC (Bld) 65 % High 24-44 [facility] Comment on above: Performed By: #### R ETCT, LD, MONOX, TSHX, CDP, CMVM, SED, CK, B12FOL, PHEP, ANASCX, PATH, EBVPRO #### [address] [address] Barbecue Cook: David Miguel MD Monocytes (Bld) [#/Vol] 0.32 10*3/uL Normal 0.1-0.8 [facility] Comment on above: Performed By: #### R ETCT, LD, MONOX, TSHX, CDP, CMVM, SED, CK, B12FOL, PHEP, ANASCX, PATH, EBVPRO #### [address] [address] Barbecue Cook: David Miguel MD Monocytes/100 WBC (Bld) 10 % High 1-7 [facility] Comment on above: Performed By: #### R ETCT, LD, MONOX, TSHX, CDP, CMVM, SED, CK, B12FOL, PHEP, ANASCX, PATH, EBVPRO #### [address] [address] Barbecue Cook: David Miguel MD Morphology Jarad (Bld) [Interp] Normal Normal [facility] Comment on above: Performed By: #### R ETCT, LD, MONOX, TSHX, CDP, CMVM, SED, CK, B12FOL, PHEP, ANASCX, PATH, EBVPRO #### [address] [id number] Barbecue Cook: David Miguel MD Neutrophil (Seg) 24 % Low 36-66 [facility] Comment on above: Performed By: #### R ETCT, LD, MONOX, TSHX, CDP, CMVM, SED, CK, B12FOL, PHEP, ANASCX, PATH, EBVPRO #### [address] [address] Barbecue Cook: David Miguel MD Erythrocyte distribution width (RBC) [Ratio] 13.1 % Normal 11.8-14.4 [facility] Comment on above: Performed By: #### R ETCT, LD, MONOX, TSHX, CDP, CMVM, SED, CK, B12FOL, PHEP, ANASCX, PATH, EBVPRO #### [place] [id number] Barbecue Cook: David Miguel MD Hematocrit (Bld) [Volume fraction] 33.9 % Low 36.3-47.1 [facility] Comment on above: Performed By: #### R ETCT, LD, MONOX, TSHX, CDP, CMVM, SED, CK, B12FOL, PHEP, ANASCX, PATH, EBVPRO #### [place] [id number] Barbecue Cook: David Miguel MD Hemoglobin (Bld) [Mass/Vol] 11.0 g/dL Low 11.9-15.1 [facility] Comment on above: Performed By: #### R ETCT, LD, MONOX, TSHX, CDP, CMVM, SED, CK, B12FOL, PHEP, ANASCX, PATH, EBVPRO #### [address] [address] Barbecue Cook: David Miguel MD MCH (RBC) [Entitic mass] 31.1 pg Normal 25.2-33.5 [facility] Comment on above: Performed By: #### R ETCT, LD, MONOX, TSHX, CDP, CMVM, SED, CK, B12FOL, PHEP, ANASCX, PATH, EBVPRO #### [address] [id number] Barbecue Cook: David Miguel MD MCHC (RBC) [Mass/Vol] 32.4 g/dL Normal 28.4-34.8 [facility] Comment on above: Performed By: #### R ETCT, LD, MONOX, TSHX, CDP, CMVM, SED, CK, B12FOL, PHEP, ANASCX, PATH, EBVPRO #### [address] [id number] Barbecue Cook: David Miguel MD MCV (RBC) [Entitic vol] 95.8 fL Normal 82.6-102.9 [facility] Comment on above: Performed By: #### R ETCT, LD, MONOX, TSHX, CDP, CMVM, SED, CK, B12FOL, PHEP, ANASCX, PATH, EBVPRO #### [place] [id number] Barbecue Cook: David Miguel MD NRBC Automated 0.0 per 100 WBC Normal 0.0 [facility] Comment on above: Performed By: #### R ETCT, LD, MONOX, TSHX, CDP, CMVM, SED, CK, B12FOL, PHEP, ANASCX, PATH, EBVPRO #### [place] [address] Barbecue Cook: David Miguel MD Platelet mean volume (Bld) [Entitic vol] 11.2 fL Normal 8.1-13.5 [facility] Comment on above: Performed By: #### R ETCT, LD, MONOX, TSHX, CDP, CMVM, SED, CK, B12FOL, PHEP, ANASCX, PATH, EBVPRO #### [address] [id number] Barbecue Cook: David Miguel MD Platelets (Bld) [#/Vol] 86 10*3/uL Low 138-453 [facility] Comment on above: Performed By: #### R ETCT, LD, MONOX, TSHX, CDP, CMVM, SED, CK, B12FOL, PHEP, ANASCX, PATH, EBVPRO #### [address] [phone] Barbecue Cook: David Miguel MD RBC (Bld) [#/Vol] 3.54 10*6/uL Low 3.95-5.11 [facility] Comment on above: Performed By: #### R ETCT, LD, MONOX, TSHX, CDP, CMVM, SED, CK, B12FOL, PHEP, ANASCX, PATH, EBVPRO #### [place] [address] Barbecue Cook: David Miguel MD WBC (Bld) [#/Vol] 3.2 10*3/uL Low 3.5-11.3 [facility] Comment on above: Performed By: #### R ETCT, LD, MONOX, TSHX, CDP, CMVM, SED, CK, B12FOL, PHEP, ANASCX, PATH, EBVPRO #### [place] [address] Barbecue Cook: David Miguel MD Auto Diff Performed NOT REPORTED Normal [facility] Comment on above: Performed By: #### R ETCT, LD, MONOX, TSHX, CDP, CMVM, SED, CK, B12FOL, PHEP, ANASCX, PATH, EBVPRO #### [facility] [employer] [address] [place] [address] Barbecue Cook: David Miguel MD Platelets (Bld) [#/Vol] NOT REPORTED Normal [facility] Comment on above: Performed By: #### R ETCT, LD, MONOX, TSHX, CDP, CMVM, SED, CK, B12FOL, PHEP, ANASCX, PATH, EBVPRO #### [address] [id number] Barbecue Cook: David Miguel MD RBC morphology finding Nom (Bld) NOT REPORTED Normal [facility] Comment on above: Performed By: #### R ETCT, LD, MONOX, TSHX, CDP, CMVM, SED, CK, B12FOL, PHEP, ANASCX, PATH, EBVPRO #### [address] [id number] Barbecue Cook: David Miguel MD WBC Morphology NOT REPORTED Normal [facility] Comment on above: Performed By: #### R ETCT, LD, MONOX, TSHX, CDP, CMVM, SED, CK, B12FOL, PHEP, ANASCX, PATH, EBVPRO #### [address] [address] Barbecue Cook: David Miguel MD Myoglobinon 04-18-2019 Myoglobin [Mass/Vol] 34 ng/mL Normal 25-58 [facility] Comment on above: Performed By: #### R ETCT, LD, MONOX, TSHX, CDP, CMVM, SED, CK, B12FOL, PHEP, ANASCX, PATH, EBVPRO #### [address] [address] Barbecue Cook: David Miguel MD Parvovirus B19, PCRon 2018 Parvovirus B19 Not Detected Normal [facility] Comment on above: Result Comment: (NOT E) NOT DETECTED - A negative result does not rule out the presence of PCR inhibitors in the patient specimen or assay specific nucleic acid in concentrations below the level of detection by the assay. INTERPRETIVE INFORMATION: Parvovirus B19 by Qualitative PCR Test developed and characteristics determined by [facility]. See Compliance Statement B: [employer] Performed by [facility], [address] [place] [id number] [email or web address] Carlos Leonard MD, Lab. Director Performed By: #### R ETCT, LD, MONOX, TSHX, CDP, CMVM, SED, CK, B12FOL, PHEP, ANASCX, PATH, EBVPRO #### [facility] [employer] [address] [place] [address] Barbecue Cook: David Miguel MD XR CHEST (2 VW)on 04-18-2019 XR CHEST (2 VW) EXAMINATION: TWO XRAY VIEWS OF THE CHEST 04/18/2019 8:06 am COMPARISON: Chest radiograph performed 04/15/2019. HISTORY: ORDERING SYSTEM PROVIDED HISTORY: worsening shortness of breath, cough TECHNOLOGIST PROVIDED HISTORY: worsening shortness of breath, cough Reason for Exam: sob FINDINGS: There is mild congestion. There is no noel consolidation or effusion. There is no pneumothorax. The mediastinal structures are unremarkable. The upper abdomen is unremarkable. The extrathoracic soft tissues are unremarkable. IMPRESSION: Mild pulmonary congestion without noel consolidation or effusion. Interpreted by: Eugenio Schrader MD Signed by: Eugenio Schrader MD 04/18/19 Final result Normal [facility] CHITO Screenon 04-17-2019 CHITO Screen Negative Normal NEG [facility] Comment on above: Result Comment: This test was run on the [employer] CHITO test system. The system provides ten test results (HEp-2NA, dsDNA, SSA, SSB, Sm, CHEMIST PHYSICAL, Scl-70, Keerthi-1, Centromere and Histone analytes) from a single patient sample. A negative CHITO screen indicates that the specimen was negative for all ten markers. Performed By: #### R ETCT, LD, MONOX, TSHX, CDP, CMVM, SED, CK, B12FOL, PHEP, ANASCX, PATH, EBVPRO #### [facility] [place], [place] [id number] Barbecue Cook: David Miguel MD Basic Metab w/rfx MGon 04-17 (cont.) Normal [facility] Comment on above: Result Comment: Aver age GFR for 30-39 years old: 107 mL/min/1.73sq m Chronic Kidney Disease: <60 mL/min/1.73sq m Kidney failure: <15 mL/min/1.73sq m eGFR calculated using average adult body mass. Additional eGFR calculator available at: http://www.menuvox.[employer]/multiple_crcl_2012.htm Performed By: #### R ETCT, LD, MONOX, TSHX, CDP, CMVM, SED, CK, B12FOL, PHEP, ANASCX, PATH, EBVPRO #### [address] [id number] Barbecue Cook: David Miguel MD Anion gap [Moles/Vol] 12 mmol/L Normal 9-17 [facility] Comment on above: Performed By: #### R ETCT, LD, MONOX, TSHX, CDP, CMVM, SED, CK, B12FOL, PHEP, ANASCX, PATH, EBVPRO #### [place] [id number] Barbecue Cook: David Miguel MD Calcium [Mass/Vol] 8.2 mg/dL Low 8.6-10.4 [facility] Comment on above: Performed By: #### R ETCT, LD, MONOX, TSHX, CDP, CMVM, SED, CK, B12FOL, PHEP, ANASCX, PATH, EBVPRO #### [place] [id number] Barbecue Cook: David Miguel MD Chloride [Moles/Vol] 107 mmol/L Normal 98-107 [facility] Comment on above: Performed By: #### R ETCT, LD, MONOX, TSHX, CDP, CMVM, SED, CK, B12FOL, PHEP, ANASCX, PATH, EBVPRO #### [place] [address] Barbecue Cook: David Miguel MD CO2 [Moles/Vol] 20 mmol/L Normal 20-31 [facility] Comment on above: Performed By: #### R ETCT, LD, MONOX, TSHX, CDP, CMVM, SED, CK, B12FOL, PHEP, ANASCX, PATH, EBVPRO #### [address] [phone] Barbecue Cook: David Miguel MD Creatinine [Mass/Vol] 0.75 mg/dL Normal 0.50-0.90 [facility] Comment on above: Performed By: #### R ETCT, LD, MONOX, TSHX, CDP, CMVM, SED, CK, B12FOL, PHEP, ANASCX, PATH, EBVPRO #### [address] [id number] Barbecue Cook: David Miguel MD GFR, Amer >60 Normal >60 [facility] Comment on above: Performed By: #### R ETCT, LD, MONOX, TSHX, CDP, CMVM, SED, CK, B12FOL, PHEP, ANASCX, PATH, EBVPRO #### [place] [address] Barbecue Cook: David Miguel MD GFR,non Amer >60 Normal >60 [facility] Comment on above: Performed By: #### R ETCT, LD, MONOX, TSHX, CDP, CMVM, SED, CK, B12FOL, PHEP, ANASCX, PATH, EBVPRO #### [address] [id number] Barbecue Cook: David Miguel MD Glucose [Mass/Vol] 121 mg/dL High 70-99 [facility] Comment on above: Performed By: #### R ETCT, LD, MONOX, TSHX, CDP, CMVM, SED, CK, B12FOL, PHEP, ANASCX, PATH, EBVPRO #### [address] [id number] Barbecue Cook: David Miguel MD Potassium [Moles/Vol] 3.7 mmol/L Normal 3.7-5.3 [facility] Comment on above: Performed By: #### R ETCT, LD, MONOX, TSHX, CDP, CMVM, SED, CK, B12FOL, PHEP, ANASCX, PATH, EBVPRO #### [address] [id number] Barbecue Cook: David Miguel MD Sodium [Moles/Vol] 139 mmol/L Normal 135-144 [facility] Comment on above: Performed By: #### R ETCT, LD, MONOX, TSHX, CDP, CMVM, SED, CK, B12FOL, PHEP, ANASCX, PATH, EBVPRO #### [address] [phone] Barbecue Cook: David Miguel MD Urea nitrogen [Mass/Vol] 10 mg/dL Normal -20 [facility] Comment on above: Performed By: #### R ETCT, LD, MONOX, TSHX, CDP, CMVM, SED, CK, B12FOL, PHEP, ANASCX, PATH, EBVPRO #### [address] [address] Barbecue Cook: David Miguel MD BUN/CRE Ratio NOT REPORTED Normal - [facility] Comment on above: Performed By: #### R ETCT, LD, MONOX, TSHX, CDP, CMVM, SED, CK, B12FOL, PHEP, ANASCX, PATH, EBVPRO #### [address] [address] Barbecue Cook: David Miguel MD Staging: NOT REPORTED Normal [facility] Comment on above: Performed By: #### R ETCT, LD, MONOX, TSHX, CDP, CMVM, SED, CK, B12FOL, PHEP, ANASCX, PATH, EBVPRO #### [address] [address] Barbecue Cook: David Miguel MD C-Reactive Proteinon 019 CRP [Mass/Vol] 32.1 mg/L High 0.0-5.0 [facility] Comment on above: Performed By: #### R ETCT, LD, MONOX, TSHX, CDP, CMVM, SED, CK, B12FOL, PHEP, ANASCX, PATH, EBVPRO #### [address] [address] Barbecue Cook: David Miguel MD CBCon 04-17-2019 Erythrocyte distribution width (RBC) [Ratio] 12.8 % Normal 11.8-14.4 [facility] Comment on above: Performed By: #### R ETCT, LD, MONOX, TSHX, CDP, CMVM, SED, CK, B12FOL, PHEP, ANASCX, PATH, EBVPRO #### [address] [address] Barbecue Cook: David Miguel MD Hematocrit (Bld) [Volume fraction] 36.6 % Normal 36.3-47.1 [facility] Comment on above: Performed By: #### R ETCT, LD, MONOX, TSHX, CDP, CMVM, SED, CK, B12FOL, PHEP, ANASCX, PATH, EBVPRO #### [address] [address] Barbecue Cook: David Miguel MD Hemoglobin (Bld) [Mass/Vol] 11.7 g/dL Low 11.9-15.1 [facility] Comment on above: Performed By: #### R ETCT, LD, MONOX, TSHX, CDP, CMVM, SED, CK, B12FOL, PHEP, ANASCX, PATH, EBVPRO #### [address] [address] Barbecue Cook: David Miguel MD MCH (RBC) [Entitic mass] 30.5 pg Normal 25.2-33.5 [facility] Comment on above: Performed By: #### R ETCT, LD, MONOX, TSHX, CDP, CMVM, SED, CK, B12FOL, PHEP, ANASCX, PATH, EBVPRO #### [place] [id number] Barbecue Cook: David Miguel MD MCHC (RBC) [Mass/Vol] 32.0 g/dL Normal 28.4-34.8 [facility] Comment on above: Performed By: #### R ETCT, LD, MONOX, TSHX, CDP, CMVM, SED, CK, B12FOL, PHEP, ANASCX, PATH, EBVPRO #### [place] [id number] Barbecue Cook: David Miguel MD MCV (RBC) [Entitic vol] 95.6 fL Normal 82.6-102.9 [facility] Comment on above: Performed By: #### R ETCT, LD, MONOX, TSHX, CDP, CMVM, SED, CK, B12FOL, PHEP, ANASCX, PATH, EBVPRO #### [place] [id number] Barbecue Cook: David Miguel MD NRBC Automated 0.0 per 100 WBC Normal 0.0 [facility] Comment on above: Performed By: #### R ETCT, LD, MONOX, TSHX, CDP, CMVM, SED, CK, B12FOL, PHEP, ANASCX, PATH, EBVPRO #### [place] [id number] Barbecue Cook: David Miguel MD Platelet mean volume (Bld) [Entitic vol] 12.4 fL Normal 8.1-13.5 [facility] Comment on above: Performed By: #### R ETCT, LD, MONOX, TSHX, CDP, CMVM, SED, CK, B12FOL, PHEP, ANASCX, PATH, EBVPRO #### [place] [id number] Barbecue Cook: David Miguel MD Platelets (Bld) [#/Vol] 77 10*3/uL Low 138-453 [facility] Comment on above: Performed By: #### R ETCT, LD, MONOX, TSHX, CDP, CMVM, SED, CK, B12FOL, PHEP, ANASCX, PATH, EBVPRO #### [address] [id number] Barbecue Cook: David Miguel MD RBC (Bld) [#/Vol] 3.83 10*6/uL Low 3.95-5.11 [facility] Comment on above: Performed By: #### R ETCT, LD, MONOX, TSHX, CDP, CMVM, SED, CK, B12FOL, PHEP, ANASCX, PATH, EBVPRO #### [address] [id number] Barbecue Cook: David Miguel MD WBC (Bld) [#/Vol] 2.3 10*3/uL Low 3.5-11.3 [facility] Comment on above: Performed By: #### R ETCT, LD, MONOX, TSHX, CDP, CMVM, SED, CK, B12FOL, PHEP, ANASCX, PATH, EBVPRO #### [address] [id number] Barbecue Cook: David Miguel MD HIV Ag/Abon 04-17-2019 HIV Ag/Ab NONREACTIVE Normal NR [facility] Comment on above: Result Comment: No l aboratory evidence of HIV infection. If acute HIV infection is suspected, consider testing for HIV-1 RNA. Performed By: #### R ETCT, LD, MONOX, TSHX, CDP, CMVM, SED, CK, B12FOL, PHEP, ANASCX, PATH, EBVPRO #### [address] [id number] Barbecue Cook: David Miguel MD Legionella Ag, Uron 04-17-20 19 Legionella Ag, Ur Specimen Description .CLEAN CATCH URINE Special Requests NOT REPORTED Direct Exam Urine negative for L. pneumophilia serogroup 1 antigen. Infection due to Legionella cannot be ruled out since (1) other L. pneumophilia serogroups and other Legionella species may cause disease, (2) antigen may not be present in early infection (<3 days). and (3) the level of antigen present in the urine may be below the detectable levels of this test. Report Status FINAL 04/17/2019 Normal [facility] Comment on above: Performed By: #### R ETCT, LD, MONOX, TSHX, CDP, CMVM, SED, CK, B12FOL, PHEP, ANASCX, PATH, EBVPRO #### [address] [address] Barbecue Cook: David Miguel MD Myoglobinon 04-17-2019 Myoglobin [Mass/Vol] 29 ng/mL Normal 25-58 [facility] Comment on above: Performed By: #### R ETCT, LD, MONOX, TSHX, CDP, CMVM, SED, CK, B12FOL, PHEP, ANASCX, PATH, EBVPRO #### [address] [address] Barbecue Cook: David Miguel MD PTon 04-17-2019 INR Coag (PPP) [Relative time] 1.0 {INR} Normal [facility] Comment on above: Result Comment: Therapeutic Range: Moderate Anticoagulant Intensity: INR = 2.0-3.0 High Anticoagulant Intensity: INR = 2.5-3.5 Performed By: #### R ETCT, LD, MONOX, TSHX, CDP, CMVM, SED, CK, B12FOL, PHEP, ANASCX, PATH, EBVPRO #### [address] [address] Barbecue Cook: David Miguel MD PT Coag (PPP) [Time] 10.3 s Normal 9.0-12.0 [facility] Comment on above: Performed By: #### R ETCT, LD, MONOX, TSHX, CDP, CMVM, SED, CK, B12FOL, PHEP, ANASCX, PATH, EBVPRO #### [address] [address] Barbecue Cook: David Miguel MD Resp Viral Panelon 9 Adenovirus Not Detected Normal [facility] Comment on above: Performed By: #### R ETCT, LD, MONOX, TSHX, CDP, CMVM, SED, CK, B12FOL, PHEP, ANASCX, PATH, EBVPRO #### [address] [address] [employer] Cook: David Miguel MD Bordetella pertussis Not Detected Normal [facility] Comment on above: Performed By: #### R ETCT, LD, MONOX, TSHX, CDP, CMVM, SED, CK, B12FOL, PHEP, ANASCX, PATH, EBVPRO #### [address] [address] [employer] Cook: David Miguel MD Chlamyd.pneumoniae Not Detected Normal [facility] Comment on above: Performed By: #### R ETCT, LD, MONOX, TSHX, CDP, CMVM, SED, CK, B12FOL, PHEP, ANASCX, PATH, EBVPRO #### [facility] [employer] [address] [place] [id number] [employer] Cook: David Miguel MD Coronavirus 229E Not Detected Normal [facility] Comment on above: Performed By: #### R ETCT, LD, MONOX, TSHX, CDP, CMVM, SED, CK, B12FOL, PHEP, ANASCX, PATH, EBVPRO #### [address] [address] Barbecue Cook: David Miguel MD Coronavirus HKU1 Not Detected Normal [facility] Comment on above: Performed By: #### R ETCT, LD, MONOX, TSHX, CDP, CMVM, SED, CK, B12FOL, PHEP, ANASCX, PATH, EBVPRO #### [address] [address] Barbecue Cook: David Miguel MD Coronavirus NL63 Not Detected Normal [facility] Comment on above: Performed By: #### R ETCT, LD, MONOX, TSHX, CDP, CMVM, SED, CK, B12FOL, PHEP, ANASCX, PATH, EBVPRO #### [address] [id number] Barbecue Cook: David Miguel MD Coronavirus OC43 Not Detected Normal [facility] Comment on above: Performed By: #### R ETCT, LD, MONOX, TSHX, CDP, CMVM, SED, CK, B12FOL, PHEP, ANASCX, PATH, EBVPRO #### [address] [id number] Barbecue Cook: David Miguel MD Human Metapneumo Not Detected Normal [facility] Comment on above: Performed By: #### R ETCT, LD, MONOX, TSHX, CDP, CMVM, SED, CK, B12FOL, PHEP, ANASCX, PATH, EBVPRO #### [address] [address] Barbecue Cook: David Miguel MD Influenza A Not Detected Normal [facility] Comment on above: Performed By: #### R ETCT, LD, MONOX, TSHX, CDP, CMVM, SED, CK, B12FOL, PHEP, ANASCX, PATH, EBVPRO #### [address] [id number] Barbecue Cook: David Miguel MD Influenza B Not Detected Normal [facility] Comment on above: Performed By: #### R ETCT, LD, MONOX, TSHX, CDP, CMVM, SED, CK, B12FOL, PHEP, ANASCX, PATH, EBVPRO #### [address] [id number] Barbecue Cook: David Miguel MD Mycoplas.pneumoniae Not Detected Normal [facility] Comment on above: Result Comment: Perf ormed by multiplexed nucleic acid assay. Performed By: #### R ETCT, LD, MONOX, TSHX, CDP, CMVM, SED, CK, B12FOL, PHEP, ANASCX, PATH, EBVPRO #### [address] [id number] Barbecue Cook: David Miguel MD Parainfluenza 1 Not Detected Normal [facility] Comment on above: Performed By: #### R ETCT, LD, MONOX, TSHX, CDP, CMVM, SED, CK, B12FOL, PHEP, ANASCX, PATH, EBVPRO #### [address] [id number] Barbecue Cook: David Miguel MD Parainfluenza 2 Not Detected Normal [facility] Comment on above: Performed By: #### R ETCT, LD, MONOX, TSHX, CDP, CMVM, SED, CK, B12FOL, PHEP, ANASCX, PATH, EBVPRO #### [address] [id number] Barbecue Cook: David Miguel MD Parainfluenza 3 Not Detected Normal [facility] Comment on above: Performed By: #### R ETCT, LD, MONOX, TSHX, CDP, CMVM, SED, CK, B12FOL, PHEP, ANASCX, PATH, EBVPRO #### [address] [id number] Barbecue Cook: David Miguel MD Parainfluenza 4 Not Detected Normal [facility] Comment on above: Performed By: #### R ETCT, LD, MONOX, TSHX, CDP, CMVM, SED, CK, B12FOL, PHEP, ANASCX, PATH, EBVPRO #### [address] [id number] Barbecue Cook: David Miguel MD Resp Syncytial Virus Not Detected Normal [facility] Comment on above: Performed By: #### R ETCT, LD, MONOX, TSHX, CDP, CMVM, SED, CK, B12FOL, PHEP, ANASCX, PATH, EBVPRO #### [address] [id number] Barbecue Cook: David Miguel MD Rhino/Enterovirus Not Detected Normal [facility] Comment on above: Performed By: #### R ETCT, LD, MONOX, TSHX, CDP, CMVM, SED, CK, B12FOL, PHEP, ANASCX, PATH, EBVPRO #### [address] [id number] Barbecue Cook: David Miguel MD US ABDOMEN LIMITEDon 019 US ABDOMEN LIMITED EXAMINATION: LIMITED ABDOMINAL ULTRASOUND 04/16/2019 8:27 pm COMPARISON: None. HISTORY: ORDERING SYSTEM PROVIDED HISTORY: spleen TECHNOLOGIST PROVIDED HISTORY: spleen Abnormal LFTs. Initial exam. FINDINGS: The spleen is enlarged measuring 14.9 x 13.6 x 6.4 cm. No splenic lesion is identified. Limited images through the left kidney are unremarkable. IMPRESSION: 1. Splenomegaly, as above. No focal spleen lesion. Interpreted by: Brandon Saldana MD Signed by: Brandon Saldana MD 04/16/19 Final result Normal [facility] US LIVERon 04-17-2019 US LIVER EXAMINATION: RIGHT UPPER QUADRANT ULTRASOUND 04/17/2019 2:50 pm COMPARISON: None. HISTORY: ORDERING SYSTEM PROVIDED HISTORY: elevated liver enzymes FINDINGS: The liver is normal in echogenicity and texture. No focal lesion is demonstrated. Common duct normal at 3 mm. No intrahepatic biliary duct dilatation. Gallbladder contracted in this nonfasting patient. No shadowing stones demonstrated. Normal directional hepatopetal flow is demonstrated in the main portal vein. Quadrant imaging demonstrates no ascites IMPRESSION: Normal ultrasound appearance of the liver Interpreted by: Rosalio Umanzor MD Signed by: Rosalio Umanzor MD 04/17/19 Final result Normal [facility] Uric Acidon 04-17-2019 Urate [Mass/Vol] 3.3 mg/dL Normal 2.4-5.7 [facility] Comment on above: Performed By: #### R ETCT, LD, MONOX, TSHX, CDP, CMVM, SED, CK, B12FOL, PHEP, ANASCX, PATH, EBVPRO #### [facility] [address] [place] [address] Barbecue Cook: David Miguel MD B12/Folate Panelon 9 Cobalamin (Vitamin B12) [Mass/Vol] 1485 pg/mL High 232-1245 [facility] Comment on above: Performed By: #### R ETCT, LD, MONOX, TSHX, CDP, CMVM, SED, CK, B12FOL, PHEP, ANASCX, PATH, EBVPRO #### [facility] [address] [place] [address] Barbecue Cook: David Miguel MD Folic Acid 17.2 ng/mL Normal >4.8 [facility] Comment on above: Performed By: #### R ETCT, LD, MONOX, TSHX, CDP, CMVM, SED, CK, B12FOL, PHEP, ANASCX, PATH, EBVPRO #### [facility] [employer] [address] [place] [address] Barbecue Cook: David Miguel MD CBC with Diffon 04-16-2019 Abs. Basophil 0.01 k/uL Normal 0.00-0.20 [facility] Comment on above: Performed By: #### R ETCT, LD, MONOX, TSHX, CDP, CMVM, SED, CK, B12FOL, PHEP, ANASCX, PATH, EBVPRO #### [place] [id number] Barbecue Cook: David Miguel MD Abs.Imm.Granulocyte 0.03 k/uL Normal 0.00-0.30 [facility] Comment on above: Performed By: #### R ETCT, LD, MONOX, TSHX, CDP, CMVM, SED, CK, B12FOL, PHEP, ANASCX, PATH, EBVPRO #### [place] [address] Barbecue Cook: David Miguel MD Abs.Neutrophil (Seg) 0.53 k/uL Low 1.50-8.10 [facility] Comment on above: Performed By: #### R ETCT, LD, MONOX, TSHX, CDP, CMVM, SED, CK, B12FOL, PHEP, ANASCX, PATH, EBVPRO #### [place] [id number] Barbecue Cook: David Miguel MD Basophils/100 WBC (Bld) 1 % Normal 0-2 [facility] Comment on above: Performed By: #### R ETCT, LD, MONOX, TSHX, CDP, CMVM, SED, CK, B12FOL, PHEP, ANASCX, PATH, EBVPRO #### [place] [address] Barbecue Cook: David Miguel MD Eosinophils (Bld) [#/Vol] 0.00 10*3/uL Normal 0.00-0.44 [facility] Comment on above: Performed By: #### R ETCT, LD, MONOX, TSHX, CDP, CMVM, SED, CK, B12FOL, PHEP, ANASCX, PATH, EBVPRO #### [place] [address] Barbecue Cook: David Miguel MD Eosinophils/100 WBC (Bld) 0 % Low 1-4 [facility] Comment on above: Performed By: #### R ETCT, LD, MONOX, TSHX, CDP, CMVM, SED, CK, B12FOL, PHEP, ANASCX, PATH, EBVPRO #### [place] [id number] Barbecue Cook: David Miguel MD Immature granulocytes (Bld) [#/Vol] 2 % High 0 [facility] Comment on above: Performed By: #### R ETCT, LD, MONOX, TSHX, CDP, CMVM, SED, CK, B12FOL, PHEP, ANASCX, PATH, EBVPRO #### [place] [address] Barbecue Cook: David Miguel MD Lymphocytes (Bld) [#/Vol] 0.65 10*3/uL Low 1.10-3.70 [facility] Comment on above: Performed By: #### R ETCT, LD, MONOX, TSHX, CDP, CMVM, SED, CK, B12FOL, PHEP, ANASCX, PATH, EBVPRO #### [place] [id number] Barbecue Cook: David Miguel MD Lymphocytes/100 WBC (Bld) 50 % High 24-43 [facility] Comment on above: Performed By: #### R ETCT, LD, MONOX, TSHX, CDP, CMVM, SED, CK, B12FOL, PHEP, ANASCX, PATH, EBVPRO #### [place] [address] Barbecue Cook: David Miguel MD Monocytes (Bld) [#/Vol] 0.08 10*3/uL Low 0.10-1.20 [facility] Comment on above: Performed By: #### R ETCT, LD, MONOX, TSHX, CDP, CMVM, SED, CK, B12FOL, PHEP, ANASCX, PATH, EBVPRO #### [address] [id number] Barbecue Cook: David Miguel MD Monocytes/100 WBC (Bld) 6 % Normal 3-12 [facility] Comment on above: Performed By: #### R ETCT, LD, MONOX, TSHX, CDP, CMVM, SED, CK, B12FOL, PHEP, ANASCX, PATH, EBVPRO #### [address] [id number] Barbecue Cook: David Miguel MD Morphology Jarad (Bld) [Interp] Normal Normal [facility] Comment on above: Performed By: #### R ETCT, LD, MONOX, TSHX, CDP, CMVM, SED, CK, B12FOL, PHEP, ANASCX, PATH, EBVPRO #### [place] [address] Barbecue Cook: David Miguel MD Neutrophil (Seg) 41 % Normal 36-65 [facility] Comment on above: Performed By: #### R ETCT, LD, MONOX, TSHX, CDP, CMVM, SED, CK, B12FOL, PHEP, ANASCX, PATH, EBVPRO #### [place] [id number] Barbecue Cook: David Miguel MD Erythrocyte distribution width (RBC) [Ratio] 12.6 % Normal 11.8-14.4 [facility] Comment on above: Performed By: #### R ETCT, LD, MONOX, TSHX, CDP, CMVM, SED, CK, B12FOL, PHEP, ANASCX, PATH, EBVPRO #### [address] [id number] Barbecue Cook: David Miguel MD Hematocrit (Bld) [Volume fraction] 37.3 % Normal 36.3-47.1 [facility] Comment on above: Performed By: #### R ETCT, LD, MONOX, TSHX, CDP, CMVM, SED, CK, B12FOL, PHEP, ANASCX, PATH, EBVPRO #### [address] [address] Barbecue Cook: David Miguel MD Hemoglobin (Bld) [Mass/Vol] 12.4 g/dL Normal 11.9-15.1 [facility] Comment on above: Performed By: #### R ETCT, LD, MONOX, TSHX, CDP, CMVM, SED, CK, B12FOL, PHEP, ANASCX, PATH, EBVPRO #### [place] [id number] Barbecue Cook: David Miguel MD MCH (RBC) [Entitic mass] 31.4 pg Normal 25.2-33.5 [facility] Comment on above: Performed By: #### R ETCT, LD, MONOX, TSHX, CDP, CMVM, SED, CK, B12FOL, PHEP, ANASCX, PATH, EBVPRO #### [place] [id number] Barbecue Cook: David Miguel MD MCHC (RBC) [Mass/Vol] 33.2 g/dL Normal 28.4-34.8 [facility] Comment on above: Performed By: #### R ETCT, LD, MONOX, TSHX, CDP, CMVM, SED, CK, B12FOL, PHEP, ANASCX, PATH, EBVPRO #### [place] [address] Barbecue Cook: David Miguel MD MCV (RBC) [Entitic vol] 94.4 fL Normal 82.6-102.9 [facility] Comment on above: Performed By: #### R ETCT, LD, MONOX, TSHX, CDP, CMVM, SED, CK, B12FOL, PHEP, ANASCX, PATH, EBVPRO #### [address] [id number] Barbecue Cook: David Miguel MD NRBC Automated 0.0 per 100 WBC Normal 0.0 [facility] Comment on above: Performed By: #### R ETCT, LD, MONOX, TSHX, CDP, CMVM, SED, CK, B12FOL, PHEP, ANASCX, PATH, EBVPRO #### [address] [id number] Barbecue Cook: David Miguel MD Platelet mean volume (Bld) [Entitic vol] 12.5 fL Normal 8.1-13.5 [facility] Comment on above: Performed By: #### R ETCT, LD, MONOX, TSHX, CDP, CMVM, SED, CK, B12FOL, PHEP, ANASCX, PATH, EBVPRO #### [place] [id number] Barbecue Cook: David Miguel MD Platelets (Bld) [#/Vol] 69 10*3/uL Low 138-453 [facility] Comment on above: Performed By: #### R ETCT, LD, MONOX, TSHX, CDP, CMVM, SED, CK, B12FOL, PHEP, ANASCX, PATH, EBVPRO #### [place] [id number] Barbecue Cook: David Miguel MD RBC (Bld) [#/Vol] 3.95 10*6/uL Normal 3.95-5.11 [facility] Comment on above: Performed By: #### R ETCT, LD, MONOX, TSHX, CDP, CMVM, SED, CK, B12FOL, PHEP, ANASCX, PATH, EBVPRO #### [address] [id number] Barbecue Cook: David Miguel MD WBC (Bld) [#/Vol] 1.3 10*3/uL Critically low 3.5-11.3 [facility] Comment on above: Performed By: #### R ETCT, LD, MONOX, TSHX, CDP, CMVM, SED, CK, B12FOL, PHEP, ANASCX, PATH, EBVPRO #### [address] [address] Barbecue Cook: David Miguel MD Auto Diff Performed NOT REPORTED Normal [facility] Comment on above: Performed By: #### R ETCT, LD, MONOX, TSHX, CDP, CMVM, SED, CK, B12FOL, PHEP, ANASCX, PATH, EBVPRO #### [place] [address] Barbecue Cook: David Miguel MD Platelets (Bld) [#/Vol] NOT REPORTED Normal [facility] Comment on above: Performed By: #### R ETCT, LD, MONOX, TSHX, CDP, CMVM, SED, CK, B12FOL, PHEP, ANASCX, PATH, EBVPRO #### [place] [address] Barbecue Cook: David Miguel MD RBC morphology finding Nom (Bld) NOT REPORTED Normal [facility] Comment on above: Performed By: #### R ETCT, LD, MONOX, TSHX, CDP, CMVM, SED, CK, B12FOL, PHEP, ANASCX, PATH, EBVPRO #### [place] [address] Barbecue Cook: David Miguel MD WBC Morphology NOT REPORTED Normal [facility] Comment on above: Performed By: #### R ETCT, LD, MONOX, TSHX, CDP, CMVM, SED, CK, B12FOL, PHEP, ANASCX, PATH, EBVPRO #### [place] [address] Barbecue Cook: David Miguel MD CMV Ab,IgMon 04-16-2019 CMV Ab,IgM 0.1 Normal <0.9 [facility] Comment on above: Result Comment: Reference Range: <0.9 Non Reactive 0.9 to 1.0 Indeterminate >1.0 Reactive The absence of CMV antibodies suggests that the patient has not been exposed to the virus and is susceptible to primary infection. The presence of CMV IgM antibodies is indicative of recent exposure to the virus. These results are not intended to replace virus isolation and should be interpreted within the context of clinical and other findings. Performed By: #### R ETCT, LD, MONOX, TSHX, CDP, CMVM, SED, CK, B12FOL, PHEP, ANASCX, PATH, EBVPRO #### [address] [address] Barbecue Cook: David Miguel MD Creatine Kinaseon 04-16-2019 CK [Catalytic activity/Vol] 152 U/L Normal 26-192 [facility] Comment on above: Performed By: #### R ETCT, LD, MONOX, TSHX, CDP, CMVM, SED, CK, B12FOL, PHEP, ANASCX, PATH, EBVPRO #### [place] [id number] Barbecue Cook: David Miguel MD Ferritinon 04-16-2019 Ferritin [Mass/Vol] 283 ug/L High 13-150 [facility] Comment on above: Performed By: #### R ETCT, LD, MONOX, TSHX, CDP, CMVM, SED, CK, B12FOL, PHEP, ANASCX, PATH, EBVPRO #### [address] [id number] Barbecue Cook: David Miguel MD Hepatitis Acute Sabrina 04-16 Hep A Ab,IgM NONREACTIVE Normal NR [facility] Comment on above: Performed By: #### R ETCT, LD, MONOX, TSHX, CDP, CMVM, SED, CK, B12FOL, PHEP, ANASCX, PATH, EBVPRO #### [address] [id number] Barbecue Cook: David Miguel MD Hep B Core Ab,IgM NONREACTIVE Normal [facility] Comment on above: Performed By: #### R ETCT, LD, MONOX, TSHX, CDP, CMVM, SED, CK, B12FOL, PHEP, ANASCX, PATH, EBVPRO #### [address] [id number] Barbecue Cook: David Miguel MD Hep B Surf Ag NONREACTIVE Normal [facility] Comment on above: Performed By: #### R ETCT, LD, MONOX, TSHX, CDP, CMVM, SED, CK, B12FOL, PHEP, ANASCX, PATH, EBVPRO #### [address] [id number] Barbecue Cook: David Miguel MD Hep C Ab NONREACTIVE Normal [facility] Comment on above: Result Comment: The hepatitis C procedure used in our laboratory is a Chemiluminescent test specific for three recombinant HCV antigens. A negative anti-HCV result indicates that the antibodies to hepatitis C virus are not present at this time. Individuals with reactive anti-HCV should be considered infected and infectious until proven otherwise. Confirmation of all equivocal or reactive results is recommended by ordering HCV RNA by PCR. Performed By: #### R ETCT, LD, MONOX, TSHX, CDP, CMVM, SED, CK, B12FOL, PHEP, ANASCX, PATH, EBVPRO #### [address] [id number] Barbecue Cook: David Miguel MD Iron Binding Cap.on 04-16-20 19 % Fe Saturation 11 % Low 20-55 [facility] Comment on above: Performed By: #### R ETCT, LD, MONOX, TSHX, CDP, CMVM, SED, CK, B12FOL, PHEP, ANASCX, PATH, EBVPRO #### [address] [id number] Barbecue Cook: David Miguel MD Iron [Mass/Vol] 27 ug/dL Low 37-145 [facility] Comment on above: Performed By: #### R ETCT, LD, MONOX, TSHX, CDP, CMVM, SED, CK, B12FOL, PHEP, ANASCX, PATH, EBVPRO #### [address] [id number] Barbecue Cook: David Miguel MD Total Fe Binding Cap 251 ug/dL Normal 250-450 [facility] Comment on above: Performed By: #### R ETCT, LD, MONOX, TSHX, CDP, CMVM, SED, CK, B12FOL, PHEP, ANASCX, PATH, EBVPRO #### [address] [address] Barbecue Cook: David Miguel MD Unbound Fe Bind Cap 224 ug/dL Normal 112-347 [facility] Comment on above: Performed By: #### R ETCT, LD, MONOX, TSHX, CDP, CMVM, SED, CK, B12FOL, PHEP, ANASCX, PATH, EBVPRO #### [address] [address] Barbecue Cook: David Miguel MD Lactate Dehydrogenaseon LDH [Catalytic activity/Vol] 373 U/L High 135-214 [facility] Comment on above: Performed By: #### R ETCT, LD, MONOX, TSHX, CDP, CMVM, SED, CK, B12FOL, PHEP, ANASCX, PATH, EBVPRO #### [address] [address] Barbecue Cook: David Miguel MD [place] w/reflex to EBVon 04-16 Monocytes (Bld) [#/Vol] Negative Normal NEG [facility] Comment on above: Performed By: #### R ETCT, LD, MONOX, TSHX, CDP, CMVM, SED, CK, B12FOL, PHEP, ANASCX, PATH, EBVPRO #### [address] [address] Barbecue Cook: David Miguel MD Parvovirus B19, PCRon 2018 Parvovirus Source NOT REPORTED Normal [facility] Comment on above: Performed By: #### R ETCT, LD, MONOX, TSHX, CDP, CMVM, SED, CK, B12FOL, PHEP, ANASCX, PATH, EBVPRO #### [place] [address] Barbecue Cook: David Miguel MD Protein,Tot,[place] Uron 2018 Creatinine [Mass/Vol] 167.0 mg/dL Normal 28.0-217.0 [facility] Comment on above: Performed By: #### R ETCT, LD, MONOX, TSHX, CDP, CMVM, SED, CK, B12FOL, PHEP, ANASCX, PATH, EBVPRO #### [place] [address] Barbecue Cook: David Miguel MD Tot Prot. Conc. 27 mg/dL Normal [facility] Comment on above: Result Comment: No n ormal range established. Performed By: #### R ETCT, LD, MONOX, TSHX, CDP, CMVM, SED, CK, B12FOL, PHEP, ANASCX, PATH, EBVPRO #### [place] [id number] Barbecue Cook: David Miguel MD TP/Cre Ratio 0.16 Normal 0.00-0.20 [facility] Comment on above: Performed By: #### R ETCT, LD, MONOX, TSHX, CDP, CMVM, SED, CK, B12FOL, PHEP, ANASCX, PATH, EBVPRO #### [address] [id number] Barbecue Cook: David Miguel MD Resp Viral Panelon 9 Influenza A H1 NOT REPORTED Normal [facility] Comment on above: Performed By: #### R ETCT, LD, MONOX, TSHX, CDP, CMVM, SED, CK, B12FOL, PHEP, ANASCX, PATH, EBVPRO #### [address] [id number] Barbecue Cook: David Miguel MD Influenza A H1-2009 NOT REPORTED Normal [facility] Comment on above: Performed By: #### R ETCT, LD, MONOX, TSHX, CDP, CMVM, SED, CK, B12FOL, PHEP, ANASCX, PATH, EBVPRO #### [address] [address] Barbecue Cook: David Miguel MD Influenza A H3 NOT REPORTED Normal [facility] Comment on above: Performed By: #### R ETCT, LD, MONOX, TSHX, CDP, CMVM, SED, CK, B12FOL, PHEP, ANASCX, PATH, EBVPRO #### [address] [id number] Barbecue Cook: David Miguel MD Source: .NASOPHARYNGEAL SWAB Normal [facility] Comment on above: Performed By: #### R ETCT, LD, MONOX, TSHX, CDP, CMVM, SED, CK, B12FOL, PHEP, ANASCX, PATH, EBVPRO #### [address] [address] Barbecue Cook: David Miguel MD Retic Counton 04-16-2019 Absolute Retic 0.040 M/uL Normal 0.030-0.080 [facility] Comment on above: Performed By: #### R ETCT, LD, MONOX, TSHX, CDP, CMVM, SED, CK, B12FOL, PHEP, ANASCX, PATH, EBVPRO #### [address] [id number] Barbecue Cook: David Miguel MD IRF 4.800 % Normal 2.7-18.3 [facility] Comment on above: Performed By: #### R ETCT, LD, MONOX, TSHX, CDP, CMVM, SED, CK, B12FOL, PHEP, ANASCX, PATH, EBVPRO #### [address] [id number] Barbecue Cook: David Miguel MD Retic Count 0.9 % Normal 0.5-1.9 [facility] Comment on above: Performed By: #### R ETCT, LD, MONOX, TSHX, CDP, CMVM, SED, CK, B12FOL, PHEP, ANASCX, PATH, EBVPRO #### [address] [id number] Barbecue Cook: David Miguel MD Retic Hemoglobin 31.0 pg Normal 28.2-35.7 [facility] Comment on above: Performed By: #### R ETCT, LD, MONOX, TSHX, CDP, CMVM, SED, CK, B12FOL, PHEP, ANASCX, PATH, EBVPRO #### [address] [id number] Barbecue Cook: David Miguel MD Sedimentation Rateon 019 Sedimentation Rate 5 mm Normal 0-20 [facility] Comment on above: Performed By: #### R ETCT, LD, MONOX, TSHX, CDP, CMVM, SED, CK, B12FOL, PHEP, ANASCX, PATH, EBVPRO #### [address] [id number] Barbecue Cook: David Miguel MD Surgical Pathologyon 019 Surgical Pathology (NOTE) [id number] [employer] [facility] ANATOMIC PATHOLOGY [address] [place], [place] [address] SURGICAL PATHOLOGY CONSULTATION Patient Name: BEAU MARTINEZ MR#: [id number] Specimen #[id number] Procedures/Addenda PERIPHERAL BLOOD REPORT Date Ordered: 04/17/2019 Status: Signed Out Date Complete: 04/17/2019 By: Kyler Guardado M.D. Date Reported: 04/17/2019 INTERPRETATION Peripheral blood: Neutropenia, moderate. Thrombocytopenia, moderate. Lymphopenia and monocytopenia. RESULTS-COMMENTS PERIPHERAL BLOOD STUDY HEMOGRAM DIFFERENTIAL % ABSOLUTE (K/UL) WBC (K/uL) 1.3 C IMM GRANS 2 H 0.03 RBC (K/uL) 3.95 SEGS 41 0.53 L HGB (G/dL) 12.4 LYMPHS 50 H 0.65 L HCT (%) 37.3 MCV (FL.) 94.4 MONOS 6 0.08 L MCH (PG.) 31.4 MCHC (g/dL) 33.2 BASO 1 0.01 RDW (%) 12.6 PLT (k/uL) 69 L RETIC (%) 0.9 Absolute RetCt 0.040 PERIPHERAL EXAMINATION BY PATHOLOGIST Platelets: Platelets show normal morphology. Leukocytes: White blood cells show normal morphology. There are no blasts. Erythrocytes: Red blood cells show normal morphology. Note: The electronic health record is reviewed. Hematology consultation is in progress. Kyler Guardado M.D. Source: 1: PERIPHERAL BLOOD FOR REVIEW BY PATHOLOGIST Normal [facility] Comment on above: Performed By: #### R ETCT, LD, MONOX, TSHX, CDP, CMVM, SED, CK, B12FOL, PHEP, ANASCX, PATH, EBVPRO #### [employer] [address] [place] [address] Barbecue Cook: David Miguel MD TSH w/reflex to FT4on 2018 TSH Qn 0.83 m[IU]/L Normal 0.30-5.00 [facility] Comment on above: Performed By: #### R ETCT, LD, MONOX, TSHX, CDP, CMVM, SED, CK, B12FOL, PHEP, ANASCX, PATH, EBVPRO #### [facility] [address] [id number] Barbecue Cook: David Miguel MD US GALLBLADDER RUQon 019 US GALLBLADDER RUQ EXAMINATION: GALLBLADDER ULTRASOUND 04/16/2019 6:15 pm COMPARISON: None. HISTORY: ORDERING SYSTEM PROVIDED HISTORY: ABNORMAL LIVER FUNCTION TESTS FINDINGS: Visualized portions of the liver without acute abnormality. No focal hepatic mass lesion identified. Parenchymal echogenicity is grossly within normal limits. The gallbladder is unremarkable without evidence for pericholecystic fluid, wall thickening, or calculi. Billboard Poster Helper documents a negative sonographic Verma's sign. Gallbladder wall is normal in thickness, measuring 2 mm. The common bile duct is normal and measures 2.4 mm. IMPRESSION: Unremarkable ultrasound of the gallbladder. No evidence for cholelithiasis or acute cholecystitis. Interpreted by: Bert Velásquez MD Signed by: Bert Velásquez MD 04/16/19 Final result Normal [facility] Encounters Encounter Date Encounter Type Care Provider Facility Start: 02-28-2023 ambulatory [facility] Start: 02-24-2023 End: 02-27-2023 ambulatory TAHIR VALDEZ [facility] Start: 02-24-2023 End: 02-26-2023 Subsequent hospital visit by physician [facility] Additional Xray At [facility] Comment on above: Acute left ankle fela n Start: 09-03-2021 End: 09-05-2021 Subsequent hospital visit by physician [facility] Additional Xray At [facility] Comment on above: Bloated abdomen; Nausea; Upper abdominal pain; Irritable bowel syndrome with constipation Arrived Start: 08-11-2020 End: 08-11-2020 Subsequent hospital visit by physician Sejal Navarro [facility] Comment on above: Palpitations Start: 03-17-2020 End: 03-19-2020 Subsequent hospital visit by physician [facility] Cat Scan Room [facility] Comment on above: Rectal bleeding; Left lower quadrant abdominal tenderness with rebound tenderness; Nausea Left lower quadrant abdominal tenderness with rebound tenderness; Rectal bleeding; Nausea Start: 07-30-2019 End: 08-02-2019 Patient encounter procedure PRANAY R [facility] Start: 07-30-2019 End: 07-30-2019 Subsequent hospital visit by physician Sejal Navarro [facility] Comment on above: Leukopenia, unspecif ied type Start: 04-16-2019 End: 04-18-2019 Evaluation and management of inpatient MAYRA GUTIERREZ [facility] Procedures Date Procedure Procedure Detail Performing Clinician Start: 02-24-2023 Radex ankle complete minimum 3 views Tahir Valdez DO Work Phone: Start: 09-03-2021 Radiologic exam abdo men 2 views Sejal Hill Ramon P[employer]AGE LIFT OPERATOR [employer] Work Phone: Start: 09-03-2021 Basic metabolic pane l calcium total Sejal Hill Ramon [employer] L[employer] OPERATOR - [employer] Work Phone: Start: 09-03-2021 Hepatic function panel Sejal Hill Ramon [employer] OPERATOR [employer] Work Phone: Start: 09-03-2021 Urinalysis microscopic only Sejal Hill Ramon P[employer]AGE L[employer] OPERATOR [employer] Work Phone: Start: 09-03-2021 Urnls dip stick/tabl et rgnt auto w/o microscopy Sejal Hill Ramon [employer] L[employer] OPERATOR [employer] Work Phone: Start: 08-11-2020 Assay of magnesium Chen ica L [employer] Work Phone: Start: 08-11-2020 Assay of thyroid sti mulating hormone tsh Albina L Yonley Work Phone: Start: 08-11-2020 Blood count complete auto&auto difrntl wbc Albina L Yonley Work Phone: Start: 08-11-2020 Comprehensive metabo lic panel Albina L Yonley Work Phone: Start: 03-17-2020 Ct abdomen & pelvis w/contrast material Sejal Liz Ramon Work Phone: Start: 03-17-2020 Blood count complete auto&auto difrntl wbc Sejal M Ramon Work Phone: Start: 03-17-2020 Comprehensive metabo lic panel Sejal Liz Ramon Work Phone: Start: 07-30-2019 Assay of ferritin PRANAY SIMPSON Start: 07-30-2019 Blood count complete auto&auto difrntl wbc PRANAY SIMPSON Start: 07-30-2019 Iron binding capacity A SHEA SIMPSON Start: 07-30-2019 Lactate dehydrogenase ldh PRANAY SIMPSON Start: 07-30-2019 Us abdominal real ti me w/image limited PRANAY SIMPSON Start: 07-30-2019 Blood count complete auto&auto difrntl wbc Pranay Simpson Work Phone: Start: 07-30-2019 Lactate dehydrogenase ldh Pranay Simpson Work Phone: Start: 04-18-2019 NEBULIZER TX INTERMITTENT VESELIN BRENDA Start: 04-18-2019 Antibody mycoplsm VESEL IN BRENDA Start: 04-18-2019 Antibody enterovirus VE XAVI BRENDA Start: 04-18-2019 NEBULIZER TX INTERMITTENT VESELIN BRENDA Start: 04-18-2019 DISCHARGE PATIENT VESEL IN BRENDA Start: 04-18-2019 INITIATE OXYGEN THER APY PROTOCOL VESELIN BRENDA Start: 04-18-2019 Radiologic exam ches t 2 views VESELIN BRENDA Start: 04-18-2019 NEBULIZER TX INTERMITTENT VESELIN BRENDA Start: 04-18-2019 Blood count complete auto&auto difrntl wbc VESELIN BRENDA Start: 04-18-2019 Comprehensive metabo lic panel VESELIN BRENDA Start: 04-18-2019 Myoglobin VESELIN DI MITROV Start: 04-18-2019 INTAKE AND OUTPUT VESEL IN BRENDA Start: 04-18-2019 NEBULIZER TX INTERMITTENT VESELIN BRENDA Start: 04-17-2019 NEBULIZER TX INTERMITTENT VESELIN BRENDA Start: 04-17-2019 Iaad ia mult step me thod nos each organism VESELIN BRENDA Start: 04-17-2019 Us abdominal real ti me w/image limited VESELIN BRENDA Start: 04-17-2019 NEBULIZER TX INTERMITTENT VESELIN BRENDA Start: 04-17-2019 IP CONSULT TO INFECT IOUS DISEASES VESELIN BRENDA Start: 04-17-2019 Culture bacterial bl ood aerobic w/id isolates VESELIN BRENDA Start: 04-17-2019 NEBULIZER TX INTERMITTENT VESELIN BRENDA Start: 04-17-2019 INITIATE OXYGEN THER APY PROTOCOL VESELIN BRENDA Start: 04-17-2019 NEBULIZER TX INTERMITTENT VESELIN BRENDA Start: 04-17-2019 Antibody hiv-1&hiv-2 single result VESELIN BRENDA Start: 04-17-2019 Assay of blood/uric acid VESELIN BRENDA Start: 04-17-2019 Blood count complete automated VESELIN BRENDA Start: 04-17-2019 C-reactive protein VESE JOY BRENDA Start: 04-17-2019 Comprehensive metabo lic panel VESELIN BRENDA Start: 04-17-2019 Myoglobin VESELIN DI MITROV Start: 04-17-2019 Prothrombin time VESELI N BRENDA Start: 04-17-2019 NEBULIZER TX INTERMITTENT VESELIN BRENDA Start: 04-17-2019 IP CONSULT TO IV TEAM V ESELIN BRENDA Start: 04-17-2019 INTAKE AND OUTPUT VESEL IN BRENDA Start: 04-16-2019 Us abdominal real ti me w/image limited VESELIN BRENDA Start: 04-16-2019 Iadna respiratry pro be & rev trnscr 12-25 target VESELIN BRENDA Start: 04-16-2019 Protein total xcpt refractometry urine VESELIN BRENDA Start: 04-16-2019 Assay of ferritin VESEL IN BRENDA Start: 04-16-2019 Iron binding capacity V ESELIN BRENDA Start: 04-16-2019 Us abdominal real ti me w/image limited VESELIN BRENDA Start: 04-16-2019 Level iv surg pathol ogy gross&microscopic exam VESELIN BRENDA Start: 04-16-2019 Acute hepatitis panel V ESELIN BRENDA Start: 04-16-2019 Antibody cytomegalov irus cmv igm VESELIN BRENDA Start: 04-16-2019 Antibody hao-bar r eb virus viral capsid vca VESELIN BRENDA Start: 04-16-2019 Antinuclear antibodies chito VESELIN BRENDA Start: 04-16-2019 Assay of thyroid sti mulating hormone tsh VESELIN BRENDA Start: 04-16-2019 Blood count complete auto&auto difrntl wbc VESELIN BRENDA Start: 04-16-2019 Blood count reticulo cyte automated VESELIN BRENDA Start: 04-16-2019 Blood smear peripher al interp phys w/writ report VESELIN BRENDA Start: 04-16-2019 Creatine kinase total V ESELIN BRENDA Start: 04-16-2019 Cyanocobalamin vitamin b-12 VESELIN BRENDA Start: 04-16-2019 Heterophile antibodi es screen VESELIN BRENDA Start: 04-16-2019 Iadna nos amplified probe tq each organism VESELIN BRENDA Start: 04-16-2019 Lactate dehydrogenase ldh VESELIN BRENDA Start: 04-16-2019 Sedimentation rate r bc automated VESELIN BRENDA Start: 04-16-2019 INITIATE OXYGEN THER APY PROTOCOL VESELIN BRENDA Start: 04-16-2019 IP CONSULT TO HEM/ONC V ESELIN BRENDA Start: 04-16-2019 NEUTROPENIC PRECAUTIONS VESELIN BRENDA Start: 04-16-2019 NOTIFY PHYSICIAN (SPECIFY) VESELIN BRENDA Start: 04-16-2019 OT EVAL AND TREAT VESEL IN BRENDA Start: 04-16-2019 PLACE INTERMITTENT P NEUMATIC COMPRESSION DEVICE VESELIN BRENDA Start: 04-16-2019 PT EVAL AND TREAT VESEL IN BRENDA Start: 04-16-2019 REASON FOR NO CHEMIC AL VTE PROPHYLAXIS VESELIN BRENDA Start: 04-16-2019 VITAL SIGNS VESELIN DI MITROV Start: 04-16-2019 FULL CODE VESELIN DI MITROV Start: 04-16-2019 INITIATE OXYGEN THER APY PROTOCOL VESELIN BRENDA Start: 04-16-2019 INTAKE AND OUTPUT VESEL IN BRENDA Start: 04-16-2019 DAILY WEIGHTS VESELIN D IMITROV Start: 04-16-2019 DIET GENERAL VESELIN DI MITROV Start: 04-15-2019 PATIENT STATUS (DIRECT) VESELIN BRENDA Plan of Treatment Date Care Activity Detail Author Start: 02-25-2024 Depression Monitoring Depression Florian [facility] Start: 03-26-2022 DTaP/Tdap/Td vaccine (2 - Td) DTaP/Tdap/Td vaccine (2 - Td) [facility] [place], [place] Start: 03-26-2022 DTaP/Tdap/Td vaccine (3 - Td or Tdap) DTaP/Tdap/Td vaccine (3 - Td or Tdap) [facility] Start: 06-16-2021 Influenza vaccination Flu vaccine (# 1) [facility] Start: 07-10-2020 Cervical cancer screen Cervical canc er screen [place], [place] Start: 07-10-2020 Screening for malign ant neoplasm of cervix Cervical cancer screen [place], [place] Start: 2020 Diabetes screen Diabetes screen [facility] Start: 2020 Lipid panel [facility] Start: 06-16-2020 Influenza vaccination Flu vaccine (# 1) [place] Start: 08-07-2019 End: 08-07-2019 Office Visit 08/07/2019 Office Visit Oncology Pranay Simpson MD [address] [address] [phone] [facility] Start: 1993 Varicella Vaccine (1 of 2 - 13+ 2-dose series) Varicella Vaccine (1 of 2 - 13+ 2-dose series) [place], [place] Start: 1985 COVID-19 Vaccine (1) COVID-19 Vaccin e (1) [facility] Start: 1981 Varicella vaccine (1 of 2 - 2-dose childhood series) Varicella vaccine (1 of 2 - 2-dose childhood series) [facility] Start: 01-03-1981 COVID-19 Vaccine (#1) COVID-19 Vacci ne (#1) [facility] EKG 12 Lead EKG 12 Lead ECG Routine Palpitations 08/11/2020 3:41 PM EDT [place] End: 07-30-2019 Ferritin [Mass/Vol] Ferritin Lab Routine Leukopenia, unspecified type 1 Occurrences starting 07/30/2019 until 07/30/2019 [place] Comment on above: 1 Occurrences starti ng 07/30/2019 until 07/30/2019 Ferritin [Mass/Vol] Ferritin Lab Routine Leukopenia, unspecified type 07/30/2019 9:43 AM EDT [place] End: 07-30-2019 Iron And TIBC Iron And TIBC Lab Routine Leukopenia, unspecified type 1 Occurrences starting 07/30/2019 until 07/30/2019 [place] Comment on above: 1 Occurrences starti ng 07/30/2019 until 07/30/2019 Iron And TIBC Iron And TIBC La b Routine Leukopenia, unspecified type 07/30/2019 9:43 AM EDT [facility], [place] Immunizations Immunization Date Immunization Notes Care Provider Ev varela 08-24-2022 Influenza, injectabl e, Madin Quinby Canine Kidney, preservative free, quadrivalent [facility] Work Phone: 07-22-2019 influenza, injectabl e, quadrivalent, preservative free [facility], [place] 09-26-2018 influenza, injectabl e, quadrivalent, preservative free [facility] 10-19-2017 influenza, injectabl e, quadrivalent, preservative free [facility] 08-01-2016 seasonal influenza, intradermal, preservative free [facility] 08-11-2014 seasonal influenza, intradermal, preservative free [facility] 09-25-2013 influenza virus vacc ine, unspecified formulation [facility] 08-23-2012 influenza virus vacc ine, unspecified formulation [facility] 03-26-2012 tetanus toxoid, redu shauna diphtheria toxoid, and acellular pertussis vaccine, adsorbed [facility] 09-29-2011 tetanus toxoid, redu shauna diphtheria toxoid, and acellular pertussis vaccine, adsorbed [facility] Work Phone: Payers Date Payer Category Payer Unknown [id number] 2019 Unknown xxxxxxxxxxxx [id number] 2016 Unknown [id number] 1980 Unknown [id number] [id number] 1980 Unknown [id number] [id number] 1980 Unknown [id number] [id number] [id number] 1980 Unknown [id number] [id number] [id number] 1980 Unknown [id number] [id number] [id number] 1980 Unknown [id number] [id number] [id number] 1980 Unknown [id number] [id number] Social History Date Type Detail Facility Start: 08-07-2019 End: 06-10-2022 Tobacco smoking status NHIS Never smoker [place], [place] Start: 08-07-2019 End: 02-24-2023 Alcohol intake Current drinker of alcohol (finding) [place] Start: 1980 Sex Assigned At Not on file M [place] Exposure to SARS-CoV -2 (event) Unable to assess [place] Start: 08-11-2020 End: 06-10-2022 Tobacco use and exposure Never used [place], [place] Start: 08-11-2020 End: 02-24-2023 History SDOH Financial 5 [place] Start: 08-11-2020 End: 02-24-2023 History SDOH Food Worry 1 [place], [place] Exposure to SARS-CoV -2 (event) Not sure [place] Start: 05-15-2019 Alcohol intake Yes [place] Start: 09-03-2021 End: 02-24-2023 Alcohol intake [facility] [employer] Work Phone: Start: 02-24-2023 History SDOH Transpo rt Non-Med 2 [facility] [employer] Phone: Start: 1980 Sex Assigned At Female B ON [id number] Evaluation note Note Date & Type Note Facility Evaluation note Diagnosis Bloated abdomen Flatulence, eructation, and gas pain Nausea Nausea alone Upper abdominal pain Abdominal pain, other specified site Irritable bowel syndrome with constipation Irritable bowel syndrome documented in this encounter [employer] Phone: Evaluation note Note Date & Type Note Facility Evaluation note Diagnosis Acute left ankle pain documented in this encounter JEANETTE CONROY [employer] Phone: Summary Purpose Family History No Family History Records FoundNo Family History Records FoundNo Family History Records FoundNo Family History Records FoundNo Family History Records Found Advance Directives No Advanced Directives Records FoundDocuments on File Type Date Recorded 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 Expl 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 Advance Directives and Living Will Power of Silk Screen Layout Drafter Latest Code Status on File Code Status Date Activated Date Inactivated Comments Full Code 04/16/2019 1:33 AM 04/18/2019 4:18 PM Documents on File Type Date Recorded 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 Expl anation Advance Directives and Living Will Power of Silk Screen Layout Drafter Latest Code Status on File Code Status Date Activated Date Inactivated Comments Full Code 04/16/2019 1:33 AM 04/18/2019 4:18 PM Documents on File Type Date Recorded 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 Expl anation ACP-Advance Directive ACP-Power of Silk Screen Layout Drafter Documents on File Type Date Recorded 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 Expl anation ACP-Advance Directive ACP-Power of Silk Screen Layout Drafter Latest Code Status on File Code Status Date Activated Date Inactivated Comments Full Code 04/16/2019 1:33 AM 04/18/2019 4:18 PM Assessments Diagnosis Rectal bleeding Hemorrhage of rectum and anus Left lower quadrant abdominal tenderness with rebound tenderness Nausea Nausea alone Diagnosis Left lower quadrant abdominal tenderness with rebound tenderness Rectal bleeding Hemorrhage of rectum and anus Nausea Nausea alone Diagnosis Palpitations Diagnosis Palpitations Diagnosis Leukopenia, unspecified type Reason for Referral Status Reason Specialty Diagnoses / Procedures Referre d By Contact Referred To Contact Closed Radiology Diagnoses Left lower quadrant abdominal tenderness with rebound tenderness Rectal bleeding Nausea Procedures CT ABDOMEN PELVIS W IV CONTRAST Additional Contrast? Oral Sejal Navarro, PACKAGE LIFT OPERATOR - [employer] [address] [place] [address] Status Reason Specialty Diagnoses / Procedures Referre d By Contact Referred To Contact Open Cardiology Diagnoses Palpitations Procedures EKG 12 Lead Albina Sloan, DO [address] [place] [address] Additional Source Comments INFORMATION SOURCE (unrecogn ized section and content) DATE CREATED AUTHOR 08/02/2019 [facility] DATE CREATED AUTHOR AUTHOR'S ORGANIZ ATION [facility] DATE CREATED AUTHOR AUTHOR'S ORGANIZ ATION 01/03/2020 Salvatore Kaur [facility] DATE CREATED AUTHOR AUTHOR'S ORGANIZ ATION 02/27/2023 [facility] DATE CREATED AUTHOR AUTHOR'S ORGANIZ ATION 03/01/2023 [facility] Reason for Visit (unrecogniz ed section and content) Status Reason Specialty Diagnoses / Procedures Referre d By Contact Referred To Contact Closed Radiology Diagnoses Left lower quadrant abdominal tenderness with rebound tenderness Rectal bleeding Nausea Procedures CT ABDOMEN PELVIS W IV CONTRAST Additional Contrast? Oral Sejal Navarro, PACKAGE LIFT OPERATOR - [employer] [place] [address] Care Teams (unrecognized sec tion and content) Service Liaison Representative Relationship Specialty Start Date End Date Sejal Navarro PACKAGE LIFT OPERATOR - [employer] [place] [address] PCP - General 02/03/16 Service Liaison Representative Relationship Specialty Start Date End Date Sejal Navarro PACKAGE LIFT OPERATOR - [employer] [address] [place] [address] PCP - General 02/03/16 Service Liaison Representative Relationship Specialty Start Date End Date Ryley Campos PACKAGE LIFT OPERATOR - [employer] [address] [place] [address] PCP - General Family Nurse Practitioner 06/10/22 Service Liaison Representative Relationship Specialty Start Date End Date Ryley Campos PACKAGE LIFT OPERATOR - [employer] [address] [place] [address] PCP - General Family Nurse Practitioner 06/10/22 FOR RECORDS PERTAINING TO PATIENTS WHO ARE OR HAVE BEEN ENROLLED IN A CHEMICAL DEPENDENCY/SUBSTANCEABUSE PROGRAM, SOME INFORMATION MAY BE OMITTED. This clinical summary was aggregated from multiple sources. Caution should be exercised in using it in the provision of clinical care. This summary normalizes information from multiple sources, and as a consequence, information in this document may materially change the coding, format and clinical context of patient data. In addition, data may be omitted in some cases. CLINICAL DECISIONS SHOULD BE BASED ON THE PRIMARY CLINICAL RECORDS. [facility] [employer] [facility]. provides no warranty or guarantee of the accuracy or completeness of information in this document.
--- NOTE | 2024-12-30 13:13 | P.HP_ITS ---
HPI H&P: HPI History of Present Illness Chief complaint: CONFUSION, FACIAL NUMBNESS PARASTHESIA HEADACHE Narrative: Patient is a 44 y.o white female with past medical history of chronic daily tension headaches and Migraine headaches. She reports that in August she started getting more frequent migraines. She went to see her PCP about them. She takes Maxalt as needed. She use to just have left eye Alysia but recently that changed and she is getting vision distortion and vision loss in the left eye, nausea, sensitive to light and loud noises. Her PCP started her on Topamax. This was started about 2 weeks ago. Since starting topamax she has had left sided face numbness, confusion, slurring of words at times. She denies any personal or family history of strokes. Currently, her headache has improved. She appears sleepy. She had normal findings of Head CT. She just had her MRI brain. Results are pending. She had hysterectomy about 6 years ago. No other medical history. Opioid HPI Opioid Management Most Recent Pain and Opioid Data: Last Pain Scale 9 12/30/24 14:09 12/30/24 Last Pain Assessment 12/30/24 14:09 Last MAR Pain Assessment 12/30/24 14:05 Last ORT Total Score 6 12/30/24 12:19 12/30/24 Last ORT Risk Category Moderate Risk 12/30/24 12:19 12/30/24 Review of Systems ROS Narrative ROS: a complete review of systems were reviewed with patient and are positive as below or listed in History of Chief Complaint. General: no fever, chills, night sweats Head: no headache, trauma, but left eye visual changes, nausea or vomiting Skin: no reported rashes, itching or sores Eyes: blurriness of vision, left eye Ears: no reported hearing loss, vertigo, earache, or tinnitus Throat: no sore throat, hoarseness, swelling of neck, or tongue pain Heart: no chest pain Lungs: no shortness of breath or cough GI: no diarrhea or vomiting/nausea Urinary: no urinary urgency, frequency or pain Neuro: no numbness or tingling HEM: no bleeding issues or bruising ENDO: no thyroid problems Psych: no anxiety or depression [facility] Medical History (Updated 12/30/24 @ 15:08 by Albina Geller, DO) Nausea ?R11.0 - Nausea (ICD-10) Surgical History History of arthroscopy of shoulder ?Z98.890 - Other specified postprocedural states (ICD-10) History of arthroscopy of knee ?Z98.890 - Other specified postprocedural states (ICD-10) History of hysterectomy ?Z90.710 - Acquired absence of both cervix and uterus (ICD-10) Family History Grandfather Family history of COPD (chronic obstructive pulmonary disease) Social History Within the past year, how often did you have a drink containing alcohol: monthly or less Within the past year, how many standard drinks containing alcohol did you have on a typical day: 1 or 2 Within the past year, how often did you have six or more drinks on one occasion: never Total score: 0 Score interpretation: A score less than 3 is consistent with normal alcohol consumption. 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 Known occupational exposures/hazards: No Highest level of school completed/degree received: Bachelor's degree Do you want help with school or training: No Are you now , , , , never or living with a partner: In a typical week, how many times do you talk on the telephone with family, friends, or neighbors: 3 or more times per week How often do you get together with friends or relatives: 3 or more times per week How often do you attend catholic or sikh services: 4 or more times per year Do you belong to any clubs or organizations such as catholic groups unions, fraternal or athletic groups, or school groups: no Total score: 3 Score interpretation: A score of greater than or equal to 2 indicates the lowest level of social isolation. Little interest or pleasure in doing things: nearly every day Feeling down, depressed, or hopeless: not at all Feel stressed/tense/nervous/anxious/difficulty sleeping: very much Due to disability, difficulty making decisions: No Do you think of yourself as: straight/heterosexual Gender Identity: female Meds Home Medications and Allergies Home Medications ?Medication ?Instructions ?Recorded ?Confirmed ?Type rizatriptan 5 mg tablet 5 mg PO .QD PRN migraine headache 12/30/24 12/30/24 History topiramate 50 mg tablet 50 mg PO QPM 12/30/24 12/30/24 History Allergies Allergy/AdvReac Type Severity Reaction Status Date / Time bacitracin (From Neosporin AdvReac Severe Unknown Verified 12/30/24 08:01 ([id number])) neomycin (From Neosporin AdvReac Severe Unknown Verified 12/30/24 08:01 ([id number])) polymyxin B (From Neosporin AdvReac Severe Unknown Verified 12/30/24 08:01 ([id number])) Exam Narrative Exam Narrative: General: Patient is alert, and oriented to person, place and time with normal affect, proper hygiene Skin: no visible rashes, or ulcers Head: atraumatic, acephalic Eyes: PERRLA, no nystagmus present, conjunctiva clear, no scleral icterus Ears: normal Tympanic Membrane, normal gross auditory acuity Nose: symmetric, no discharge, no maxillary or frontal sinus tenderness Mouth/Throat: no erythema, exudate, or tonsillar enlargement, normal dentition Neck: no masses palpated, normal thyroid, no JVD or audible carotid bruits Heart: Normal rate and rhythm, no murmurs/rubs/gallops Lungs: no audible wheezes, crackles and normal breath sounds all lung phillips Abdomen: Normal audible bowel sounds, no distension, No palpable masses, no organomegaly, no rebound/guarding/ or rigidity Musculoskeletal: no swelling bilateral lower extremities Vascular: Normal carotid, radial, femoral, posterior tibial, and dorsalis pedis pulses Lymph: no supraclavicular, axillary, or anterior/posterior cervical adenopathy Neuro: CN II-X grossly intact, normal sensation upper and lower extremities with some numbness on the left side of face compared to the right. No other focal neurological deficits. No slurring of speech. Constitutional Vital Signs, click to edit/add: Last Vital Signs Temp 98.3 F 12/30/24 12:19 Pulse 62 12/30/24 12:19 Resp 16 12/30/24 12:19 BP 111/73 12/30/24 12:19 Pulse Ox 96 12/30/24 12:19 O2 Del Method Room Air 12/30/24 12:19 Results Labs Labs: Short CBC 12/30/24 Range/Units 08:11 WBC 7.5 (4.0-11.0) 10^3/uL Hgb 14.0 (12.0-16.0) g/dL Hct 41.7 (36.0-48.0) % Plt Count 208 (150-450) 10^3/uL BMP 12/30/24 08:11 Sodium 141 Potassium 4.5 Chloride 106 Carbon Dioxide 26.4 BUN 21.0 H Creatinine 1.09 H Glucose 98 Calcium 9.2 Urine 12/30/24 Range/Units 08:13 Urine Color Yellow (YELLOW) Urine Clarity Clear (CLEAR) Urine pH 5.5 (5.0-9.0) Ur Specific [place] >=1.030 A (1.005-1.025) Urine Protein Negative (NEG/TRACE) mg/dL Urine Glucose (UA) Negative (NEGATIVE) mg/dL Assessment and Plan Assessment and Plan (1) Atypical migraine: Assessment and Plan: awaiting results of MRI, will check lipids, Magnesium, TFT's in the morning. PRN medications as needed for Acute Migraine. If MRI negative, would recommend Neurology as outpatient to find medication that works for her migraine prevention. (2) Left facial numbness: Assessment and Plan: This has been worse since starting Topamax and feel it's related to this. Normal labs. Plan Patient is a full code compression stockings for DVT prophylaxis Patient is observation and is not expected to stay longer than 1 day
[2024-12-30] MEDS: LACTATED RINGER'S SOLUTION 1,000 ML 125 ML IV ×2 (14:05→21:36)
[2024-12-30] MEDS: ONDANSETRON PF 4 MG/2 ML VIAL IV (14:05)
[2024-12-30] MEDS: KETOROLAC TROMETHAMINE 30 MG/ML VIAL IVP ×2 (14:05→21:39)
[2024-12-31] VITALS (7 sets, daily range): BP systolic 90–112; BP diastolic 58–67; PULSE 52–83; TEMP 36.4–36.9; O2SAT 94–95
[2024-12-31] MEDS: LACTATED RINGER'S SOLUTION 1,000 ML 125 ML IV (05:35)
[2024-12-31 06:12] LABS: Basophils Percent Auto 0.4 % (0.2-2.0); Eosinophils Absolute Auto 0.1 10^3/uL (0.0-0.7); Eosinophils Percent Auto 1.2 % (0.9-7.0); Hematocrit 37.7 % (36.0-48.0); Hemoglobin 12.6 g/dL (12.0-16.0); Immature Granulocytes Abs Auto 0.04 10^3/uL (0.00-0.03); Immature Granulocytes Pct Auto 0.6 % (0.0-0.5); Lymphocytes Absolute Auto 2.5 10^3/uL (1.2-3.8); Lymphocytes Percent Auto 37.7 % (20.5-60.0); Mean Corpuscular HGB Conc 33.4 g/dL (29.9-35.2); Mean Corpuscular Hemoglobin 31.1 pg (26.7-34.0); Mean Corpuscular Volume 93.1 fL (81.0-99.0); Mean Platelet Volume 10.9 fL (9.5-13.5); Monocytes Absolute Auto 0.4 10^3/uL (0.3-0.8); Monocytes Percent Auto 5.2 % (1.7-12.0); Neutrophils Absolute Auto 3.7 10^3/uL (1.4-6.5); Neutrophils Percent Auto 54.9 % (43.0-75.0); Platelet Count 188 10^3/uL (150-450); Red Blood Count 4.05 10^6/uL (4.20-5.40); Red Cell Distribution Width 12.3 % (11.0-15.0); White Blood Count 6.7 10^3/uL (4.0-11.0)
[2024-12-31 06:27] LABS: Estimated Average Glucose 103 mg/dL; Glycohemoglobin A1C 5.2 % (4.5-6.2)
[2024-12-31 06:39] LABS: Alanine Aminotransferase 20 U/L (14-59); Albumin Globulin Ratio 1.2; Albumin Level 3.1 g/dL (3.4-5.0); Alkaline Phosphatase 55 U/L (46-116); Anion Gap 8.8; Aspartate Amino Transferase 15 U/L (15-37); BUN Creatinine Ratio 14.3; Bilirubin Total 0.3 mg/dL (0.2-1.0); Carbon Dioxide 27.2 mmol/L (21.0-32.0); Chloride 110 mmol/L (98-107); Chol HDL Ratio 3.1; Cholesterol 148 mg/dL (<=200); Estimated GFR (African America >60 (>=60 mL/min/1.73m^2); Estimated GFR (Non-African Ame 57 (>=60 mL/min/1.73m^2); Globulin 2.6 g/dL; Glucose 92 mg/dL (74-106); HDL Cholesterol 47 mg/dL (40-60); Sodium 142 mmol/L (136-145); Thyroid Stimulating Hormone 0.824 uIU/mL (0.358-3.740); Total Protein 5.7 g/dL (6.4-8.2); Triglycerides 55 mg/dL (<=150)
--- NOTE | 2024-12-31 09:01 | PM.DS1 ---
DS: Providers Provider Date of admission: 12/30/24 12:10 Primary care physician: Darryl Campos NP Attending physician on admission: Albina Geller Consults: 12/30/24 Consult to Gripper Installer Routine Has provider been notified: Yes Reason for consult:: Housing/Long Term Other reason:: mold in home Discharging clinician: Albina Geller DS: Diagnosis Discharge Diagnosis (1) Atypical migraine: (2) Left facial numbness: DS: Summary Hospital Course Hospital Course: Patient is a 44 y.o white female with past medical history of chronic daily tension headaches and Migraine headaches. She reports that in August she started getting more frequent migraines. She went to see her PCP about them. She takes Maxalt as needed. She use to just have left eye Alysia but recently that changed and she is getting vision distortion and vision loss in the left eye, nausea, sensitive to light and loud noises. Her PCP started her on Topamax. This was started about 2 weeks ago. Since starting topamax she has had left sided face numbness, confusion, slurring of words at times. She denies any personal or family history of strokes. Currently, her headache has improved. She had normal findings of Head CT. She had her MRI brain which was also normal. Labs and vitals all normal including magnesium, lipids, and thyroid. Her headache improved with some fluids. I discussed with her stopping the Topamax. We have made outpatient Neurology appointment for her. She is stable and amendable for discharge. Status at Discharge Functional status at discharge: independent ambulation Overall status at discharge: patient is back to baseline Time Spent with Patient Time attestation: Total time spent providing and/or coordinating discharge services: Time spent: greater than 30 minutes Exam Narrative Exam Narrative: General: Patient is alert, and oriented to person, place and time with normal affect, proper hygiene Skin: no visible rashes, or ulcers Head: atraumatic, acephalic Eyes: PERRLA, no nystagmus present, conjunctiva clear, no scleral icterus Ears: normal gross auditory acuity Heart: Normal rate and rhythm, no murmurs/rubs/gallops Lungs: no audible wheezes, crackles and normal breath sounds all lung phillips Musculoskeletal: no swelling bilateral lower extremities Neuro: CN II-X grossly intact Constitutional Vital Signs, click to edit/add: Last Vital Signs Temp 97.6 F 12/31/24 07:56 Pulse 52 L 12/31/24 07:57 Resp 16 12/31/24 07:56 BP 112/67 12/31/24 07:56 Pulse Ox 95 12/31/24 07:56 O2 Del Method Room Air 12/31/24 07:56 DS: Data Data Completed and Pending Labs on day of discharge: Labs from last 24 hours 12/31/24 12/30/24 12/30/24 06:03 08:13 08:11 WBC 6.7 RBC 4.05 L Hgb 12.6 Hct 37.7 MCV 93.1 MCH 31.1 MCHC 33.4 RDW 12.3 Plt Count 188 MPV 10.9 Neut % (Auto) 54.9 Lymph % (Auto) 37.7 [facility] % (Auto) 5.2 Eos % (Auto) 1.2 Baso % (Auto) 0.4 Neut # (Auto) 3.7 Lymph # (Auto) 2.5 [facility] # (Auto) 0.4 Eos # (Auto) 0.1 Baso # (Auto) 0.0 Abs Immat Gran (auto) 0.04 H Imm/Tot Granulo (auto) 0.6 H Sodium 142 Potassium 4.0 Chloride 110 H Carbon Dioxide 27.2 Anion Gap 8.8 BUN 15.0 Creatinine 1.05 H Est GFR ( Amer) >60 Est GFR (Non-Af Amer) 57 L BUN/Creatinine Ratio 14.3 Glucose 92 Estimat Average Glucose 103 Hemoglobin A1c 5.2 Calcium 9.0 Magnesium 2.0 Total Bilirubin 0.3 AST 15 ALT 20 Alkaline Phosphatase 55 Total Protein 5.7 L Albumin 3.1 L Globulin 2.6 Albumin/Globulin Ratio 1.2 Triglycerides 55 Cholesterol 148 LDL Cholesterol, Calc 90.0 VLDL Cholesterol 11.0 HDL Cholesterol 47 Cholesterol/HDL Ratio 3.1 TSH 0.824 Urine HCG, Qual Negative Preliminary micro results at discharge 12/30/24 08:13 Urine Culture - Preliminary Urine,Clean Catch Pending - Specimen sent to [facility] Discharge Plan Discharge Disposition: Home, Self-Care Condition: Good Discharge Medications: Continued rizatriptan 5 mg tablet 5 mg PO .QD PRN (Reason: migraine headache) Discontinued topiramate 50 mg tablet 50 mg PO QPM Activity: increase activity as tolerated Diet: advance to your usual diet Print Language: Nauruan Patient Instructions: Rizatriptan (By mouth), Migraine Headache (ED), Acute Headache (DC), Acute Delirium (DC), Paresthesia (ED) Forms: Portal Instructions Follow Up Appointments: Mon. January 03 @ 9am with Darryl Campos NP [phone] . January 21 @ 5pm with [facility] [address] ([facility], 2nd floor) [phone] Discharge Date/Time: 12/31/24 11:52
[2024-12-31] MEDS: KETOROLAC TROMETHAMINE 30 MG/ML VIAL IVP (09:06)
--- NOTE | 2024-12-31 10:00 | CM.NOTE ---
Discussed with pt regarding mold in home, pt would need to reach out for someone to come out to house. Pt could look online for resources. Pt verbalizes understanding. Otherwise pt is up ad karo in room, very independent no discharge needs identified.
--- NOTE | 2024-12-31 11:33 | CM.NOTE ---
Rounds made with Dr. Geller, pt will discharge to home and f[facility]u with [facility].
--- NOTE | 2025-01-01 15:05 | CM.DCFOLLOWU ---
1st attempt 01/01/25, no answer
--- NOTE | 2025-01-02 13:19 | CM.NOTE ---
Urine culture results faxed to Mireille Campos, [facility] office. Appointment January 03, 2025.
--- NOTE | 2025-01-02 13:50 | CM.DCFOLLOWU ---
2nd attempt 01/02/25, no answer
== END 2024-12-31 11:52 | disposition home or self-care (01) ==
LOC: ER 12:06 → MS 12:14
PROVIDERS: Admitting Provider Family Medicine; Emergency Provider Student in an Organized Health Care Education/Training Program; PCP Nurse Practitioner Family; Visit Provider Family Medicine
DX: G43.809 Other migraine, not intractable, without status migrainosus (principal); Z88.8 Allergy status to other drugs, medicaments and biological substances; Z79.899 Other long term (current) drug therapy
CPT/HCPCS: 36415; 70450; 70551; 71045; 80048; 80053; 80061; 81001; 83036; 83735; 84443; 84484; 84703; 85025; 85610; 87086; 93005; 96374; 96375; 96376; 99285; G0378; J1885; J2405